=== PATIENT | male | born 1970 | race Caucasian/White ===

== ENCOUNTER 2017-01-09 13:00 | Inpatient (IN) | payer SELFPAY ==
[~2017-01-09] VITALS: Ht 175.3 cm; Wt 86.5 kg
[2017-01-09] VITALS (11 sets, daily range): BP systolic 95–109; BP diastolic 55–74; PULSE 98–114; RESP 16–20; TEMP 98.1–99.3; O2SAT 95–100
[~2017-01-09 13:00] MED LIST: DIPH25TA2 PO; FURO40TA PO; MULT-6 PO; PANT40TA3 PO; PROP10TA6 PO; SPIR25TA PO
--- NOTE | 2017-01-09 13:08 | PD ---
Physical Exam Time Seen by Provider: 13:05 Narrative 46-year-old male presents to emergency department with complaint of "extreme abdominal pain due to internal bleeding." Reports hematemesis and hematochezia. Reports headache, bilateral lower leg pain, back back pain. Unknown fevers. Patient seen in triage. Vital signs reviewed. Patient awaiting medical bed. Data Data Last Documented VS Vital Signs Date Time Temp Pulse Resp B/P (MAP) Pulse Ox O2 Delivery O2 Flow Rate FiO2 01/09/17 13:02 98.1 108 18 102/72 (82) 98 Room Air Orders Orders Complete Blood Count With Diff (01/09/17 13:08) Comprehensive Metabolic Panel (01/09/17 13:08) Lipase (01/09/17 13:08) Prothrombin Time / Inr (Pt) (01/09/17 13:08) Act Partial Throm Time (Ptt) (01/09/17 13:08) Urinalysis - C+S If Indicated (01/09/17 13:08) Iv Access Insert/Monitor (01/09/17 13:08) Ecg Monitoring (01/09/17 13:08) Oximetry (01/09/17 13:08) Sodium Chloride 0.9% Flush (Ns Flush) (01/09/17 13:15) MDM Supervised Visit with ANNITA: Fatuma Wilkerson Jan 09, 2017 13:08
[2017-01-09] MEDS ORDERED: SODIUM CHLORIDE 0.9% FLUSH 10 ML FLUSH IV FLUSH PRN ×2 (13:15→16:00)
[2017-01-09] MEDS ORDERED: ONDANSETRON HCL 4 MG/2 ML VIAL IV PUSH ONE (13:30)
[2017-01-09] MEDS ORDERED: MORPHINE SULFATE 8 MG/ML INJ IV PUSH ONE (13:30)
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
[2017-01-09] MEDS ORDERED: ALPR0.5T3 PO (13:45)
[2017-01-09 14:35] LABS: AUTOMATED NEUTROPHIL # 4.6 TH/MM3 (1.8-7.7); BASOPHIL % 0.3 % (0.0-2.0); EOSINOPHIL % 0.3 % (0.0-4.0); HEMATOCRIT 37.7 % (39.0-51.0); HEMO FLAGS DIFF FINAL; LYMPH % 29.5 % (9.0-44.0); LYMPHOCYTE # 2.2 TH/MM3 (1.0-4.8); MEAN CELL VOLUME 100.2 FL (80.0-100.0); MEAN CORPUSCULAR HEMOGLOBIN 34.5 PG (27.0-34.0); MEAN CORPUSCULAR HGB CONC 34.5 % (32.0-36.0); NEUT % 62.9 % (16.0-70.0); PLATELET COUNT 118 TH/MM3 (150-450); RED BLOOD COUNT 3.77 MIL/MM3 (4.50-5.90); RED CELL DISTRIBUTION WIDTH 15.1 % (11.6-17.2); WHITE BLOOD COUNT 7.4 TH/MM3 (4.0-11.0)
[2017-01-09 14:48] LABS: APTT (PATIENT) 30.5 SEC (24.3-30.1); INTERNATIONAL NORMALIZED RATIO 1.2 RATIO; PROTHROMBIN TIME - PATIENT 12.8 SEC (9.8-11.6)
[2017-01-09 15:17] LABS: ALKALINE PHOSPHATASE 181 U/L (45-117); ALT (GPT) 22 U/L (12-78); ANION GAP 19 MEQ/L (5-15); AST (GOT) 34 U/L (15-37); BICARBONATE 25.5 MEQ/L (21.0-32.0); BLOOD UREA NITROGEN 12 MG/DL (7-18); CHLORIDE 79 MEQ/L (98-107); GLOMERULAR FILTRATION RATE 63 ML/MIN (>89); TOTAL BILIRUBIN ADULT 0.6 MG/DL (0.2-1.0)
[2017-01-09 15:19] LABS: SODIUM (NA) 123 MEQ/L (136-145)
[2017-01-09 15:20] LABS: POTASSIUM 2.7 MEQ/L (3.5-5.1)
[2017-01-09] MEDS ORDERED: SENNOSIDES 8.6 MG TAB PO PRN (16:00)
[2017-01-09] MEDS ORDERED: MAGNESIUM HYDROXIDE SUSP 30 ML CUP PO PRN (16:00)
[2017-01-09] MEDS ORDERED: DEXTROSE 50% IN WATER 50 ML VIAL(D50) IV PUSH PRN (16:00)
[2017-01-09] MEDS ORDERED: PANTOPRAZOLE SODIUM 40 MG VIAL IV PUSH ONE (16:00)
[2017-01-09] MEDS ORDERED: ONDANSETRON HCL 4 MG/2 ML VIAL IVP PRN (16:00)
[2017-01-09] MEDS ORDERED: LACTULOSE SYRUP 20 GM/30 ML CUP PO PRN (16:00)
[2017-01-09] MEDS ORDERED: GLUCAGON 1 MG/ML VIAL OTHER PRN (16:00)
[2017-01-09] MEDS ORDERED: BISACODYL 10 MG SUPP RECTAL PRN (16:00)
[2017-01-09] MEDS ORDERED: NALOXONE HCL 0.4 MG/ML AMP IV PUSH PRN (16:00)
[2017-01-09] MEDS ORDERED: ACETAMINOPHEN 325 MG TAB PO PRN (16:00)
[2017-01-09] MEDS ORDERED: diphenhydrAMINE HCL 25 MG CAP PO PRN (16:00)
[2017-01-09] MEDS: NS + KCL 40 MEQ INJ 1,000 ML IV SCH (16:04)
--- NOTE | 2017-01-09 16:27 | RADRPT ---
EXAM DATE/TIME: 01/09/2017 16:03 [facility] COMPARISON: US ABDOMEN - LOWER LIMITED, April 22, 2015, 10:36. INDICATIONS : Abdominal distention. MEDICAL HISTORY : Hypercholesterolemia. Hypertension. Liver disease. Anxiety. MRSA. SURGICAL HISTORY : Surgery, unspecified. ENCOUNTER: Subsequent ACUITY: 4-6 days PAIN SCORE: 6/10 LOCATION: Abdomen. AREA EVALUATED: Abdomen. FINDINGS: Imaging of the abdomen and pelvis was performed to evaluate for ascites for possible paracentesis. No ascitic fluid observed. Note is made of a distended urinary bladder. This contains approximately 650 mL. Visceral evaluation of the abdomen was not performed today. CONCLUSION: 1. No significant ascitic fluid. 2. Distended urinary bladder. Kam Zhu Jr., MD on January 09, 2017 at 16:21 Board Certified Radiologist. This report was verified electronically.
[2017-01-09] MEDS: INSULIN ASPART SUPPLEMENTAL SCALE SQ SCH ×2 (17:00→20:40)
[2017-01-09 17:36] LABS: BLOOD, URINE NEG (NEG); COMMENT (UR) CULT NOT INDICATED; CULTURE IF INDICATED CULT NOT INDICATED; GLUCOSE,URINE 1000 mg/dL (NEG); KETONE, URINE NEG (NEG); MUCUS URINE FEW /lpf (OCC); NITRITE,URINE NEG (NEG); PH, URINE 5.5 (5.0-8.5); URINE COLOR YELLOW (YELLW/STRAW)
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
[2017-01-09] MEDS: PROPRANOLOL HCL 10 MG TAB PO SCH ×2 (20:30→21:00)
[2017-01-09] MEDS: SODIUM CHLORIDE 0.9% FLUSH 10 ML FLUSH IV FLUSH SCH (20:30)
[2017-01-09] MEDS: DOCUSATE SODIUM 50 MG/SENNA 8.6 MG TAB PO SCH (20:30)
[2017-01-09] MEDS: ALPRAZolam 0.5 MG TAB PO PRN (20:30)
[2017-01-09] MEDS: SPIRONOLACTONE 25 MG TAB PO SCH ×2 (20:30→21:00)
[2017-01-09] MEDS: ENOXAPARIN SODIUM 40 MG/0.4 ML SYRINGE SQ SCH (20:31)
[2017-01-09] MEDS ORDERED: oxyCODONE/ACETAMINOPHEN 5 MG/325 MG TAB PO ONE (22:45)
[2017-01-10] VITALS (10 sets, daily range): BP systolic 93–108; BP diastolic 58–77; PULSE 84–109; RESP 16–20; TEMP 97.8–98.4; O2SAT 93–98
[2017-01-10] MEDS: NS + KCL 40 MEQ INJ 1,000 ML IV SCH ×2 (04:27→15:34)
[2017-01-10] MEDS: ALPRAZolam 0.5 MG TAB PO PRN ×3 (04:30→21:00)
[2017-01-10] MEDS ORDERED: oxyCODONE/ACETAMINOPHEN 5 MG/325 MG TAB PO ONE (04:45)
[2017-01-10 08:09] LABS: AUTOMATED NEUTROPHIL # 2.9 TH/MM3 (1.8-7.7); BASOPHIL % 0.7 % (0.0-2.0); EOSINOPHIL % 0.3 % (0.0-4.0); HEMATOCRIT 33.6 % (39.0-51.0); LYMPH % 26.7 % (9.0-44.0); LYMPHOCYTE # 1.2 TH/MM3 (1.0-4.8); MEAN CELL VOLUME 100.5 FL (80.0-100.0); MEAN CORPUSCULAR HEMOGLOBIN 34.9 PG (27.0-34.0); MEAN CORPUSCULAR HGB CONC 34.7 % (32.0-36.0); MONO % 9.1 % (0.0-8.0); NEUT % 63.2 % (16.0-70.0); PLATELET COUNT 79 TH/MM3 (150-450); RED BLOOD COUNT 3.35 MIL/MM3 (4.50-5.90); WHITE BLOOD COUNT 4.5 TH/MM3 (4.0-11.0)
[2017-01-10 08:14] LABS: HEMO FLAGS AUTO DIFF
[2017-01-10] MEDS: PROPRANOLOL HCL 10 MG TAB PO SCH ×2 (08:53→20:50)
[2017-01-10] MEDS: PANTOPRAZOLE SOD 40 MG DELAYED RELEASE TAB PO SCH (08:53)
[2017-01-10] MEDS: INSULIN ASPART SUPPLEMENTAL SCALE SQ SCH ×4 (08:53→21:00)
[2017-01-10] MEDS: DOCUSATE SODIUM 50 MG/SENNA 8.6 MG TAB PO SCH ×2 (08:53→21:00)
[2017-01-10] MEDS: THIAMINE HCL 100 MG TAB PO SCH (08:53)
[2017-01-10] MEDS: FOLIC ACID 1 MG TAB PO SCH (08:54)
[2017-01-10] MEDS: SPIRONOLACTONE 25 MG TAB PO SCH ×2 (08:54→20:50)
[2017-01-10] MEDS: SODIUM CHLORIDE 0.9% FLUSH 10 ML FLUSH IV FLUSH SCH ×2 (08:55→20:50)
[2017-01-10 09:07] LABS: SCAN/DIFF AUTO DIFF CONFIRMED
[2017-01-10 09:09] LABS: PLATELET ESTIMATE SMEAR LOW (NORMAL); PLATELET MORPHOLOGY NORMAL (NORMAL)
--- NOTE | 2017-01-10 09:25 | HHI.PR ---
Subjective Remarks In bed, feels some imprpovem,ent since yesterday. He has a walker at home. Wants to try to walk with PT. Still with numbness in his legs. No much abd cramps. No diarrhea, n/v/c. No fever or chills. Able to keep down some food however did not eat much (jello only) Objective Vitals Vital Signs Date Time Temp Pulse Resp B/P (MAP) Pulse Ox O2 Delivery O2 Flow Rate FiO2 01/10/17 09:02 Room Air 01/10/17 04:00 Room Air 01/10/17 04:00 97.9 86 18 101/77 (85) 98 01/10/17 00:00 Room Air 01/10/17 00:00 98.4 109 16 101/68 (79) 95 01/09/17 22:08 114 95/62 (73) 01/09/17 21:30 95 21 01/09/17 20:00 Room Air 01/09/17 20:00 98.8 107 16 95/55 (68) 95 01/09/17 19:58 108 01/09/17 18:52 108 01/09/17 18:15 99.3 109 20 101/58 (72) 98 01/09/17 17:57 01/09/17 17:00 100 19 109/68 (82) 97 Room Air 01/09/17 16:00 98 19 104/74 (84) 100 Room Air 01/09/17 14:00 98 17 107/73 (84) Room Air 01/09/17 13:14 97 Room Air 01/09/17 13:14 17 01/09/17 13:02 98.1 108 18 102/72 (82) 98 Room Air I/O 01/09/17 01/09/17 01/09/17 01/10/17 01/10/17 01/10/17 07:00 15:00 23:00 07:00 15:00 23:00 Intake Total 1348 ml Output Total 600 ml Balance 748 ml Intake Oral 240 ml IV Total 1108 ml Output Urine Total 600 ml # Bowel Movements 0 Result Diagram: 01/10/17 0729 01/09/17 1330 Imaging Last Impressions Abdomen Ultrasound 01/09/17 0000 Signed Impressions: Service Date/Time: December 16:03 - CONCLUSION: 1. No significant ascitic fluid. 2. Distended urinary bladder. Kam Zhu Jr., MD Objective Remarks GENERAL: This is a well-nourished, well-developed patient, in no apparent distress. Awake and alert. A and O 3. CARDIOVASCULAR: Regular rate and rhythm without murmurs, gallops, or rubs. RESPIRATORY: Clear to auscultation. Breath sounds equal bilaterally. No wheezes , rales, or rhonchi. GASTROINTESTINAL: Abdomen soft. Distended. Mild tenderness noted diffusely. No hepato-splenomegaly, or palpable masses but difficult to assess secondary distention. No guarding. MUSCULOSKELETAL: Extremities without clubbing, cyanosis. (+) Bilateral lower extremity pitting edema. No joint tenderness, effusion, or edema noted. No calf tenderness. NEUROLOGICAL: Awake and alert. Able to move all extremities. Strength grossly intact bilateral upper and lower extremities. Decreased sensation bilateral lower extremities. Normal speech. A/P Assessment and Plan 46-year-old male with a past medical history significant for liver cirrhosis who presents to [facility] with complaints of bilateral lower extremity pain , numbness and loss of balance found to have a low sodium and potassium as well as a distended urinary bladder by abdominal ultrasound. Symptomatic hyponatremia Na of 123 on admission. Trending up cont IVF . Monitor closely for overcorrection. Hypokalemia. Monitor and replace as need. - Patient with complaints of loss of balance, muscle cramping and decreased sensation in BLEs. Sensorium appears clear at present. - Hold home Lasix - Continuous cardiac monitoring - Patient started on normal saline with potassium replacement in the ED. Continue with gentle IV fluid administration. Monitor for any evidence of fluid overload. - Repeat BMP in a.m. - PT eval/tx Liver cirrhosis with ongoing alcohol consumption - Reportedly, patient only a social drinker. Hepatitis workup negative 2015. - AST and ALT within normal limits. Alkaline phosphatase slightly elevated. - No evidence of ascites on ultrasound - Hold Lasix secondary to electrolyte abnormalities - Continue home dose of spironolactone 50 mg twice a day, propanolol 10 mg q 12h - Protonix 40 mg daily - Discussed alcohol abstinence - Folic acid and thiamine daily - Strict I&Os Urinary retention - Abdominal ultrasound personally reviewed showing a distended urinary bladder - Insert Jha catheter - Follow up on UA results Abdominal pain - Suspect due to combination of urinary retention and symptomatic hyponatremia causing cramping - As stated above, Jha for urinary retention and electrolyte repletion Hyperglycemia - Accu-Chek - Insulin sliding scale - Obtain hemoglobin A1c, previous a1c was normal in 2016, however BS in 350s on admission Thrombocytopenia - platelets 118. Monitor levels. Monitor for signs of bleeding. - Suspect secondary to liver disease - Monitor Tobaccoism - Discussed smoking cessation Anxiety - Continue home dose of Xanax 0.5 mg by mouth every 8 when necessary GI prophylaxis - Patient on Protonix DVT prophylaxis - Lovenox subcutaneous Discussed with the patient, nurse Nelli Cox MD Jan 10, 2017 09:25
[2017-01-10 09:53] LABS: BICARBONATE 30.9 MEQ/L (21.0-32.0); POTASSIUM 3.1 MEQ/L (3.5-5.1)
[2017-01-10] MEDS ORDERED: POTASSIUM CHLORIDE 10 MEQ CONTROLLED RELEASE TAB PO ONE (11:15)
[2017-01-10] MEDS: oxyCODONE/ACETAMINOPHEN 5 MG/325 MG TAB PO PRN ×3 (11:39→23:54)
[2017-01-10 16:30] LABS: HEMOGLOBIN A1a 1.1 %; HEMOGLOBIN A1b 2.6 %; HEMOGLOBIN Ao 76.3 %; HEMOGLOBIN LA1C 2.9 %; HEMOGLOBIN P3 4.8 %
[2017-01-10] MEDS: ENOXAPARIN SODIUM 40 MG/0.4 ML SYRINGE SQ SCH (21:01)
[2017-01-11 04:07] VITALS: BP 96/71; PULSE 84; RESP 16; TEMP 97.6; O2SAT 92
[2017-01-11] MEDS: oxyCODONE/ACETAMINOPHEN 5 MG/325 MG TAB PO PRN ×3 (05:47→17:40)
[2017-01-11] MEDS: NS + KCL 40 MEQ INJ 1,000 ML IV SCH ×2 (05:49→21:34)
[2017-01-11] MEDS: ALPRAZolam 0.5 MG TAB PO PRN ×3 (05:50→21:35)
[2017-01-11 08:00] VITALS: BP 102/72; PULSE 93; RESP 20; TEMP 97.8; O2SAT 95
[2017-01-11] MEDS: INSULIN ASPART SUPPLEMENTAL SCALE SQ SCH ×4 (08:00→21:39)
[2017-01-11 08:20] LABS: AUTOMATED NEUTROPHIL # 2.7 TH/MM3 (1.8-7.7); BASOPHIL % 0.4 % (0.0-2.0); EOSINOPHIL % 0.5 % (0.0-4.0); HEMATOCRIT 33.9 % (39.0-51.0); LYMPH % 25.1 % (9.0-44.0); MEAN CELL VOLUME 102.8 FL (80.0-100.0); MEAN CORPUSCULAR HEMOGLOBIN 34.1 PG (27.0-34.0); MEAN CORPUSCULAR HGB CONC 33.2 % (32.0-36.0); MONO % 8.9 % (0.0-8.0); NEUT % 65.1 % (16.0-70.0); PLATELET COUNT 74 TH/MM3 (150-450); RED CELL DISTRIBUTION WIDTH 14.7 % (11.6-17.2); WHITE BLOOD COUNT 4.1 TH/MM3 (4.0-11.0)
[2017-01-11 08:25] LABS: HEMO FLAGS AUTO DIFF
[2017-01-11 08:58] LABS: POTASSIUM 3.9 MEQ/L (3.5-5.1)
[2017-01-11] MEDS: INSULIN DETEMIR 100 UNITS/ML VIAL SQ SCH ×2 (09:00→21:35)
[2017-01-11] MEDS: DOCUSATE SODIUM 50 MG/SENNA 8.6 MG TAB PO SCH ×2 (09:00→21:00)
[2017-01-11 09:15] LABS: PLATELET ESTIMATE SMEAR LOW (NORMAL)
[2017-01-11 09:16] LABS: PLATELET MORPHOLOGY NORMAL (NORMAL); SCAN/DIFF AUTO DIFF CONFIRMED
[2017-01-11] MEDS: PANTOPRAZOLE SOD 40 MG DELAYED RELEASE TAB PO SCH (09:52)
[2017-01-11] MEDS: FOLIC ACID 1 MG TAB PO SCH (09:52)
[2017-01-11] MEDS: SPIRONOLACTONE 25 MG TAB PO SCH ×2 (09:52→21:32)
[2017-01-11] MEDS: THIAMINE HCL 100 MG TAB PO SCH (09:52)
[2017-01-11] MEDS: PROPRANOLOL HCL 10 MG TAB PO SCH ×2 (09:53→21:32)
[2017-01-11] MEDS: SODIUM CHLORIDE 0.9% FLUSH 10 ML FLUSH IV FLUSH SCH ×2 (09:55→21:00)
[2017-01-11 12:00] VITALS: BP 110/73; PULSE 103; RESP 20; TEMP 98; O2SAT 96
--- NOTE | 2017-01-11 14:09 | HHI.PR ---
Subjective Remarks In bed, says she can't walk. Still with parestesia in his legs, and also she has shouting pain, describes as firing/ eclectic pain in his legs lasting for seconds. Says he was supposed to be on gabapentin No fever or chills. No n/v/d/c. Objective Vitals Vital Signs Date Time Temp Pulse Resp B/P (MAP) Pulse Ox O2 Delivery O2 Flow Rate FiO2 01/11/17 12:00 98.0 103 20 110/73 (85) 96 01/11/17 09:00 98 Room Air 01/11/17 08:00 97.8 93 20 102/72 (82) 95 01/11/17 04:07 97.6 84 16 96/71 (79) 92 01/10/17 23:34 98.2 89 18 99/67 (78) 95 01/10/17 20:49 98.4 90 18 98/58 (71) 96 01/10/17 20:21 93 01/10/17 19:42 Room Air 01/10/17 17:34 88 100/73 (82) 01/10/17 16:00 97.8 84 20 96/64 (75) 93 I/O 01/10/17 01/10/17 01/10/17 01/11/17 01/11/17 01/11/17 06:59 14:59 22:59 06:59 14:59 22:59 Intake Total 1348 ml 892 ml 1240 ml Output Total 600 ml 250 ml Balance 748 ml 892 ml 990 ml Intake Oral 240 ml 240 ml IV Total 1108 ml 892 ml 1000 ml Output Urine Total 600 ml 250 ml # Bowel Movements 0 0 Result Diagram: 01/11/17 0754 01/11/17 0754 Imaging Last Impressions Abdomen Ultrasound 01/09/17 0000 Signed Impressions: Service Date/Time: December 16:03 - CONCLUSION: 1. No significant ascitic fluid. 2. Distended urinary bladder. Kam Zhu Jr., MD Objective Remarks GENERAL: This is a well-nourished, well-developed patient, in no apparent distress. Awake and alert. A and O 3. CARDIOVASCULAR: Regular rate and rhythm without murmurs, gallops, or rubs. RESPIRATORY: Clear to auscultation. Breath sounds equal bilaterally. No wheezes , rales, or rhonchi. GASTROINTESTINAL: Abdomen soft. Distended. Mild tenderness noted diffusely. No hepato-splenomegaly, or palpable masses but difficult to assess secondary distention. No guarding. MUSCULOSKELETAL: Extremities without clubbing, cyanosis. (+) Bilateral lower extremity pitting edema. No joint tenderness, effusion, or edema noted. No calf tenderness. NEUROLOGICAL: Awake and alert. Able to move all extremities. Strength grossly intact bilateral upper and lower extremities. Decreased sensation bilateral lower extremities. Normal speech. A/P Assessment and Plan 46-year-old male with a past medical history significant for liver cirrhosis who presents to [facility] with complaints of bilateral lower extremity pain , numbness and loss of balance found to have a low sodium and potassium as well as a distended urinary bladder by abdominal ultrasound. Symptomatic hyponatremia Na of 123 on admission. Trending up cont IVF . Monitor closely for overcorrection. Hypokalemia. Monitor and replace as need. - Patient with complaints of loss of balance, muscle cramping and decreased sensation in BLEs. Sensorium appears clear at present. - Hold home Lasix - Continuous cardiac monitoring - Patient started on normal saline with potassium replacement in the ED. Continue with gentle IV fluid administration. Monitor for any evidence of fluid overload. - Repeat BMP in a.m. - PT eval/tx Liver cirrhosis with ongoing alcohol consumption - Reportedly, patient only a social drinker. Hepatitis workup negative 2015. - AST and ALT within normal limits. Alkaline phosphatase slightly elevated. - No evidence of ascites on ultrasound - Hold Lasix secondary to electrolyte abnormalities - Continue home dose of spironolactone 50 mg twice a day, propanolol 10 mg q 12h - Protonix 40 mg daily - Discussed alcohol abstinence - Folic acid and thiamine daily - Strict I&Os Urinary retention - Abdominal ultrasound personally reviewed showing a distended urinary bladder - Insert Jha catheter - Follow up on UA results Abdominal pain - Suspect due to combination of urinary retention and symptomatic hyponatremia causing cramping - As stated above, Jha for urinary retention and electrolyte repletion Uncontrolled DM start Onsulin detemir. low IsS. Accu checks. - Accu-Chek - Insulin sliding scale - Obtain hemoglobin A1c, previous a1c was normal in 2016, however BS in 350s on admission A1c of 11 Thrombocytopenia - platelets 118. Monitor levels. Monitor for signs of bleeding. - Suspect secondary to liver disease - Monitor Tobaccoism - Discussed smoking cessation Anxiety - Continue home dose of Xanax 0.5 mg by mouth every 8 when necessary GI prophylaxis - Patient on Protonix DVT prophylaxis - Lovenox subcutaneous Discussed with the patient, nurse Nelli Cox MD Jan 11, 2017 14:09
[2017-01-11] MEDS ORDERED: CALCIUM GLUCONATE INJ 2 GM in DEXTROSE 5% IN WATER 100ML INJ 100 ML IV ONE ×2 (15:00)
[2017-01-11 16:00] VITALS: BP 93/55; PULSE 92; RESP 20; TEMP 98.1; O2SAT 93
[2017-01-11] MEDS: GABAPENTIN 100 MG CAP PO SCH (16:28)
[2017-01-11 20:00] VITALS: BP 108/72; PULSE 93; PULSE 95; RESP 18; TEMP 97.7; O2SAT 98
[2017-01-11 20:57] VITALS: O2SAT 98
[2017-01-11] MEDS: CALCIUM CARBONATE 500 MG CHEWABLE TAB CHEW SCH (21:32)
[2017-01-11] MEDS: ENOXAPARIN SODIUM 40 MG/0.4 ML SYRINGE SQ SCH (21:33)
[2017-01-12] VITALS: BP 128/77; PULSE 90; RESP 16; TEMP 97.8; O2SAT 95
[2017-01-12] MEDS: oxyCODONE/ACETAMINOPHEN 5 MG/325 MG TAB PO PRN ×2 (00:46→07:39)
[2017-01-12] MEDS: NS + KCL 40 MEQ INJ 1,000 ML IV SCH (03:05)
[2017-01-12 04:00] VITALS: BP 111/68; PULSE 89; RESP 20; TEMP 97.9; O2SAT 94
[2017-01-12] MEDS: ALPRAZolam 0.5 MG TAB PO PRN ×2 (05:36→13:33)
[2017-01-12] MEDS: PANTOPRAZOLE SOD 40 MG DELAYED RELEASE TAB PO SCH (07:37)
[2017-01-12] MEDS: CALCIUM CARBONATE 500 MG CHEWABLE TAB CHEW SCH (07:37)
[2017-01-12] MEDS: SPIRONOLACTONE 25 MG TAB PO SCH (07:37)
[2017-01-12] MEDS: GABAPENTIN 100 MG CAP PO SCH ×2 (07:37→11:42)
[2017-01-12] MEDS: PROPRANOLOL HCL 10 MG TAB PO SCH (07:38)
[2017-01-12] MEDS: THIAMINE HCL 100 MG TAB PO SCH (07:38)
[2017-01-12] MEDS: FOLIC ACID 1 MG TAB PO SCH (07:38)
[2017-01-12] MEDS: INSULIN DETEMIR 100 UNITS/ML VIAL SQ SCH (07:41)
[2017-01-12] MEDS: DOCUSATE SODIUM 50 MG/SENNA 8.6 MG TAB PO SCH (07:41)
[2017-01-12] MEDS: SODIUM CHLORIDE 0.9% FLUSH 10 ML FLUSH IV FLUSH SCH (07:52)
[2017-01-12] MEDS: INSULIN ASPART SUPPLEMENTAL SCALE SQ SCH ×2 (07:52→12:00)
[2017-01-12 08:00] VITALS: BP 111/78; PULSE 97; RESP 20; TEMP 98.7; O2SAT 95
--- NOTE | 2017-01-12 09:37 | HHI.PR ---
Subjective Remarks Patient was not able to ambulate, however he feels much better after gabapentin started. and was able to ambulkate He did walk with a cane with PT. Patient feels much better. No fever or chills. No n/v/d/c. Says he has a cane and also has a walker at home. Says he had diabetes uncontrolled a long tome ago and was on insulin, knows how to self inject insulin. Had diabetic classes. [place] diabetic [place]. Patient feels comfortable to go home today. Objective Vitals Vital Signs Date Time Temp Pulse Resp B/P (MAP) Pulse Ox O2 Delivery O2 Flow Rate FiO2 01/12/17 08:00 98.7 97 20 111/78 (89) 95 01/12/17 04:00 97.9 89 20 111/68 (82) 94 01/12/17 00:00 97.8 90 16 128/77 (94) 95 01/11/17 21:30 Room Air 01/11/17 20:57 98 21 01/11/17 20:00 97.7 93 18 108/72 (84) 98 01/11/17 20:00 95 01/11/17 16:00 98.1 92 20 93/55 (68) 93 01/11/17 12:00 98.0 103 20 110/73 (85) 96 I/O 01/11/17 01/11/17 01/11/17 01/12/17 01/12/17 01/12/17 07:00 15:00 23:00 07:00 15:00 23:00 Intake Total 1240 ml 480 ml 540 ml Output Total 250 ml 550 ml 650 ml Balance 990 ml 480 ml -550 ml -110 ml Intake Oral 240 ml 480 ml 540 ml IV Total 1000 ml Output Urine Total 250 ml 550 ml 650 ml # Bowel Movements 0 0 Result Diagram: 01/11/17 0754 01/11/17 0754 Imaging Last Impressions Abdomen Ultrasound 01/09/17 0000 Signed Impressions: Service Date/Time: December 16:03 - CONCLUSION: 1. No significant ascitic fluid. 2. Distended urinary bladder. Kam Zhu Jr., MD Objective Remarks GENERAL: This is a well-nourished, well-developed patient, in no apparent distress. Awake and alert. A and O 3. CARDIOVASCULAR: Regular rate and rhythm without murmurs, gallops, or rubs. RESPIRATORY: Clear to auscultation. Breath sounds equal bilaterally. No wheezes , rales, or rhonchi. GASTROINTESTINAL: Abdomen soft. Distended. Mild tenderness noted diffusely. No hepato-splenomegaly, or palpable masses but difficult to assess secondary distention. No guarding. MUSCULOSKELETAL: Extremities without clubbing, cyanosis. (+) Bilateral lower extremity pitting edema. No joint tenderness, effusion, or edema noted. No calf tenderness. NEUROLOGICAL: Awake and alert. Able to move all extremities. Strength grossly intact bilateral upper and lower extremities. Decreased sensation bilateral lower extremities. Normal speech. A/P Assessment and Plan 46-year-old male with a past medical history significant for liver cirrhosis who presents to [facility] with complaints of bilateral lower extremity pain , numbness and loss of balance found to have a low sodium and potassium as well as a distended urinary bladder by abdominal ultrasound. Perea placed, voiding trial. started flomax, to f.u as OP with PcP. Received IVF NS, lasix on hold, Na improved, will decreased dose of lasix at DC, continue spironolactone. 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 patient wants insulin and diabetic kit at discharge. Start atorvastatin. Patient also with vit D deficiency with a level of 6.8, started ergocalciferol. Also B12 supplement, thiamine and folate supplement. patient was adviced to quit etoh use. Patient also with diabetic neuropathy, satrted gabapentin with significant improvement of his symptoms. he was able to walk with his cane with PT. Has a cane and also has a walker at home. Patient imprpved , he was discharge din stable condition to follow up as OP with PCP and consultants. Symptomatic hyponatremia Na of 123 on admission. Trending up cont IVF . Monitor closely for overcorrection. Hypokalemia. Monitor and replace as need. - Patient with complaints of loss of balance, muscle cramping and decreased sensation in BLEs. Sensorium appears clear at present. - Hold home Lasix - Continuous cardiac monitoring - Patient started on normal saline with potassium replacement in the ED. Continue with gentle IV fluid administration. Monitor for any evidence of fluid overload. - Repeat BMP in a.m. - PT eval/tx Liver cirrhosis with ongoing alcohol consumption - Reportedly, patient only a social drinker. Hepatitis workup negative 2015. - AST and ALT within normal limits. Alkaline phosphatase slightly elevated. - No evidence of ascites on ultrasound - Hold Lasix secondary to electrolyte abnormalities - Continue home dose of spironolactone 50 mg twice a day, propanolol 10 mg q 12h - Protonix 40 mg daily - Discussed alcohol abstinence - Folic acid and thiamine daily - Strict I&Os Urinary retention - Abdominal ultrasound personally reviewed showing a distended urinary bladder - Insert Perea catheter, voiding trial. if unable to urinate will have perea at DC to follow up as op with urology. Also started flomax. - Follow up on UA results Abdominal pain - Suspect due to combination of urinary retention and symptomatic hyponatremia causing cramping - As stated above, Perea for urinary retention and electrolyte repletion. Consult urology Uncontrolled DM 2, with A1c of 11.9 complicate with peripheral neuropaty. Increase insulin detemir to 7U BID. Low ISS. Accu checks. - Accu-Chek, monitor BS and adjust insulin as need - Insulin sliding scale - Obtain hemoglobin A1c, previous a1c was normal in 2016, however BS in 350s on admission A1c of 11.9 - Start gabapentin Inability to ambulate . Consult PT. - PT to work with patient daily until improves. Thrombocytopenia - platelets 118. Monitor levels. Monitor for signs of bleeding. - Suspect secondary to liver disease - Monitor Vit D deficiency vit D of 6. - Start ergocalciferol. Also Vit B12 low normal side, start B12 supplement Tobaccoism - Discussed smoking cessation Anxiety - Continue home dose of Xanax 0.5 mg by mouth every 8 when necessary GI prophylaxis - Patient on Protonix DVT prophylaxis - Lovenox subcutaneous Discussed with the patient, nurse DC plan: Patient improved, walking in the hallway with a cane with PT, patient has a walker at home and has the cane with him. Patient doesn't have insurance. Case management ff for DC plan. Dc home today to follow up as OP with PCP and consultants. Voiding trial. Started flomax also Nelli Cox MD Jan 12, 2017 09:37
[2017-01-12] MEDS ORDERED: CYANOCOBALAMIN 1000 MCG/ML VIAL IM ONE (09:45)
[2017-01-12] MEDS ORDERED: LANCETS1 MI1 (10:23)
[2017-01-12] MEDS ORDERED: FURO40TA PO (10:23)
[2017-01-12] MEDS ORDERED: GLUCKIT15 (10:23)
[2017-01-12] MEDS ORDERED: ERGO1CAP30 PO (10:23)
[2017-01-12] MEDS ORDERED: NOVOLOGP2 SQ (10:23)
[2017-01-12] MEDS ORDERED: ALPR0.5T3 PO (10:23)
[2017-01-12] MEDS ORDERED: SPIR25TA PO (10:23)
[2017-01-12] MEDS ORDERED: PROP10TA6 PO (10:23)
[2017-01-12] MEDS ORDERED: LEVEMIR SQ ×2 (10:23→10:34)
[2017-01-12] MEDS ORDERED: GLUCTES12 (10:23)
[2017-01-12] MEDS ORDERED: FOLI-31 PO (10:23)
[2017-01-12] MEDS ORDERED: INSU1MIS15 (10:23)
[2017-01-12] MEDS ORDERED: [UNRECOGNIZED DRUG - CODE] PO (10:23)
[2017-01-12] MEDS ORDERED: BIOM30MI (10:23)
[2017-01-12] MEDS ORDERED: GABA100C4 PO (10:25)
--- NOTE | 2017-01-12 10:26 | HHI.DS ---
Discharge Summary Admission Date Jan 09, 2017 at 15:53 Discharge Date: Jan 12, 2017 Admitting Diagnosis Hyponatremia, hypokalemia, worsening ascitis (1) Vitamin D deficiency ICD Code: E55.9 - Vitamin D deficiency, unspecified (2) Liver cirrhosis ICD Code: K74.60 - Unspecified cirrhosis of liver Status: Acute (3) Ascites ICD Code: R18.8 - Other ascites Status: Acute (4) Diabetes type 2, uncontrolled ICD Code: E11.65 - Diabetes type 2, uncontrolled Status: Acute (5) Fatty liver ICD Code: K76.0 - Fatty liver Status: Acute (6) Hypertension ICD Code: I10 - Hypertension Status: Acute (7) Elevated alkaline phosphatase level ICD Code: R74.8 - Elevated serum alkaline phosphatase level Status: Acute (8) Diabetic neuropathy associated with type 2 diabetes mellitus ICD Code: E11.40 - Type 2 diabetes mellitus with diabetic neuropathy, unspecified (9) Urinary retention ICD Code: R33.9 - Retention of urine, unspecified (10) ETOH abuse ICD Code: F10.10 - Alcohol abuse Status: Acute Procedures none Brief History - From Admission Written by Floresita Guardado, acting as scribe for Dr. Cox on 01/09/17 at 17: 51. This is a 46-year-old male with a past medical history significant for liver cirrhosis who presents to [facility] with complaints of bilateral lower extremity pain, numbness and loss of balance. Patient states this has been progressive for the past several weeks. Overall, patient is a poor historian and must be continually redirected in the conversation. He denies any sensation from the ankles down. He states he must hold onto the marie or objects in the room to try and walk around. He endorses generalized weakness. Additionally, he also complains of increased swelling in his abdomen. He admits that he is urinating less but denies any dysuria. Patient continues to drink alcohol stating he was told by his physician he was okay to drink a little. Patient will not give clear specifics on how much alcohol he drinks stating that he will have a glass or 2 of wine when he cooks pasta. Patient is also complaining of significant back pain. Patient reports a history of ascites and has undergone paracentesis approximately 3 times in the last one being a year ago. In the ED, patient was found to have a sodium level of 123 and potassium level of 2.7. Abdominal ultrasound reveals no significant ascitic fluid but shows a distended urinary bladder. CBC/BMP: 01/11/17 0754 01/11/17 0754 Significant Findings Laboratory Tests Test 01/09/17 13:30 01/09/17 17:20 01/10/17 07:29 01/10/17 08:52 Red Blood Count 3.77 MIL/MM3 (4.50-5.90) 3.35 MIL/MM3 (4.50-5.90) Hematocrit 37.7 % (39.0-51.0) 33.6 % (39.0-51.0) Mean Corpuscular Volume 100.2 FL (80.0-100.0) 100.5 FL (80.0-100.0) Mean Corpuscular Hemoglobin 34.5 PG (27.0-34.0) 34.9 PG (27.0-34.0) Platelet Count 118 TH/MM3 (150-450) 79 TH/MM3 (150-450) Prothrombin Time 12.8 SEC (9.8-11.6) Activated Partial Thromboplast Time 30.5 SEC (24.3-30.1) Random Glucose 352 MG/DL (74-106) 237 MG/DL (74-106) Total Protein 8.7 GM/DL (6.4-8.2) Calcium Level 8.4 MG/DL (8.5-10.1) 8.3 MG/DL (8.5-10.1) Alkaline Phosphatase 181 U/L (45-117) Sodium Level 123 MEQ/L (136-145) 129 MEQ/L (136-145) Potassium Level 2.7 MEQ/L (3.5-5.1) 3.1 MEQ/L (3.5-5.1) Chloride Level 79 MEQ/L (98-107) 89 MEQ/L (98-107) Anion Gap 19 MEQ/L (5-15) Estimat Glomerular Filtration Rate 63 ML/MIN (>89) 82 ML/MIN (>89) Urine Glucose (UA) 1000 mg/dL (NEG) Urine Mucus FEW /lpf (OCC) Hemoglobin 11.7 GM/DL (13.0-17.0) Monocytes (%) (Auto) 9.1 % (0.0-8.0) Platelet Estimate LOW (NORMAL) Hemoglobin A1c 11.8 % (4.3-6.0) Test 01/10/17 12:00 01/11/17 07:54 Red Blood Count 3.30 MIL/MM3 (4.50-5.90) Hemoglobin 11.2 GM/DL (13.0-17.0) Hematocrit 33.9 % (39.0-51.0) Mean Corpuscular Volume 102.8 FL (80.0-100.0) Mean Corpuscular Hemoglobin 34.1 PG (27.0-34.0) Platelet Count 74 TH/MM3 (150-450) Monocytes (%) (Auto) 8.9 % (0.0-8.0) Platelet Estimate LOW (NORMAL) Random Glucose 172 MG/DL (74-106) Calcium Level 7.6 MG/DL (8.5-10.1) Sodium Level 133 MEQ/L (136-145) 25-Hydroxy Vitamin D Total 6.8 ng/ML (30-100) Imaging Last Impressions Abdomen Ultrasound 01/09/17 0000 Signed Impressions: Service Date/Time: December 16:03 - CONCLUSION: 1. No significant ascitic fluid. 2. Distended urinary bladder. Kam Zhu Jr., MD PE at Discharge GENERAL: This is a well-nourished, well-developed patient, in no apparent distress. Awake and alert. A and O 3. CARDIOVASCULAR: Regular rate and rhythm without murmurs, gallops, or rubs. RESPIRATORY: Clear to auscultation. Breath sounds equal bilaterally. No wheezes , rales, or rhonchi. GASTROINTESTINAL: Abdomen soft. Distended. Mild tenderness noted diffusely. No hepato-splenomegaly, or palpable masses but difficult to assess secondary distention. No guarding. MUSCULOSKELETAL: Extremities without clubbing, cyanosis. (+) Bilateral lower extremity pitting edema. No joint tenderness, effusion, or edema noted. No calf tenderness. NEUROLOGICAL: Awake and alert. Able to move all extremities. Strength grossly intact bilateral upper and lower extremities. Decreased sensation bilateral lower extremities. Normal speech. Hospital Course 46-year-old male with a past medical history significant for liver cirrhosis who presents to [facility] with complaints of bilateral lower extremity pain , numbness and loss of balance found to have a low sodium and potassium as well as a distended urinary bladder by abdominal ultrasound. Perea placed, voiding trial. started flomax, to f.u as OP with PcP. Received IVF NS, lasix on hold, Na improved, will decreased dose of lasix at DC, continue spironolactone. Patient also with uncontrolled DM a1c of 11.9, patient had patient educator in the past he was on insulin previously and know how to self inject insulin. patient wants insulin and diabetic kit at discharge. Start atorvastatin. Patient also with vit D deficiency with a level of 6.8, started ergocalciferol. Also B12 supplement, thiamine and folate supplement. patient was adviced to quit etoh use. Patient also with diabetic neuropathy, satrted gabapentin with significant improvement of his symptoms. he was able to walk with his cane with PT. Has a cane and also has a walker at home. Patient imprpved , he was discharge din stable condition to follow up as OP with PCP and consultants. Symptomatic hyponatremia Na of 123 on admission. Trending up cont IVF . Monitor closely for overcorrection. Hypokalemia. Monitor and replace as need. - Patient with complaints of loss of balance, muscle cramping and decreased sensation in BLEs. Sensorium appears clear at present. - Hold home Lasix - Continuous cardiac monitoring - Patient started on normal saline with potassium replacement in the ED. Continue with gentle IV fluid administration. Monitor for any evidence of fluid overload. - Repeat BMP in a.m. - PT eval/tx Liver cirrhosis with ongoing alcohol consumption - Reportedly, patient only a social drinker. Hepatitis workup negative 2015. - AST and ALT within normal limits. Alkaline phosphatase slightly elevated. - No evidence of ascites on ultrasound - Hold Lasix secondary to electrolyte abnormalities - Continue home dose of spironolactone 50 mg twice a day, propanolol 10 mg q 12h - Protonix 40 mg daily - Discussed alcohol abstinence - Folic acid and thiamine daily - Strict I&Os Urinary retention - Abdominal ultrasound personally reviewed showing a distended urinary bladder - Insert Perea catheter, voiding trial. if unable to urinate will have perea at ME to follow up as op with urology. Also started flomax. - Follow up on UA results Abdominal pain - Suspect due to combination of urinary retention and symptomatic hyponatremia causing cramping - As stated above, Perea for urinary retention and electrolyte repletion. Consult urology Uncontrolled DM 2, with A1c of 11.9 complicate with peripheral neuropaty. Increase insulin detemir to 7U BID. Low ISS. Accu checks. - Accu-Chek, monitor BS and adjust insulin as need - Insulin sliding scale - Obtain hemoglobin A1c, previous a1c was normal in 2016, however BS in 350s on admission A1c of 11.9 - Start gabapentin Inability to ambulate . Consult PT. - PT to work with patient daily until improves. Thrombocytopenia - platelets 118. Monitor levels. Monitor for signs of bleeding. - Suspect secondary to liver disease - Monitor Vit D deficiency vit D of 6. - Start ergocalciferol. Also Vit B12 low normal side, start B12 supplement Tobaccoism - Discussed smoking cessation Anxiety - Continue home dose of Xanax 0.5 mg by mouth every 8 when necessary GI prophylaxis - Patient on Protonix DVT prophylaxis - Lovenox subcutaneous Discussed with the patient, nurse DC plan: Patient improved, walking in the hallway with a cane with PT, patient has a walker at home and has the cane with him. Patient doesn't have insurance. Case management ff for DC plan. Dc home today to follow up as OP with PCP and consultants. Voiding trial. Started flomax also Pt Condition on Discharge: Stable Discharge Disposition: Discharge Home Discharge Time: > 30 minutes Discharge Instructions DIET: Follow Instructions for: Heart Healthy Diet, Diabetic Diet Activities you can perform: Regular-No Restrictions Follow up Referrals: PCP Follow-up - 2-3 Days Urology - 1 Week New Medications: Atorvastatin (Atorvastatin) 20 Mg Tab 20 MG PO HS for Cholesterol Management, #30 TAB 0 Refills Blood Glucose Monitoring W/Device (Glucocom Blood Glucose Mo W/Device) 1 Kit Kit KIT .ROUTE DIRECTED for Blood Sugar Management, #1 Folic Acid-B12-B6 (Foltabs) 0.8-115-10 Mg Tab 1 TAB PO DAILY for Nutritional Supplement, #60 TAB 0 Refills Glucocom Test Strips (Glucocom Test Strips) 1 Paola Paola EA .ROUTE DIRECTED for Blood Sugar Management, #1 Insulin Aspart Inj (Novolog Inj) 1,000 Unit/10 Ml Vial 1-9 UNITS SQ ACHS for Blood Sugar Management, #10 ML 0 Refills Max dose at bedtime:( )units; sugars less than 70,(0)units; sugars 150-199,(1) unit; sugars 200-249,(3) units; sugars 250-299,(5) units; sugars 300-349,(7) units; sugars greater than 349,(9) units Insulin Detemir Inj (Levemir Inj) 1,000 unit/ 10 ML Vial 7 UNITS SQ BID for Blood Sugar Management, #120 VIAL 0 Refills Do not mix with any other Insulin. Insulin Syringe/U-100/31G X 5/16" 1 ml (Insulin Syringe/U-100/31G X 5/16" 1 ml) 31 Gauge X 5/16" Mis EA .ROUTE DIRECTED for Blood Sugar Management, #1 0 Refills Lancets (Lancets) 1 Mis Mis EA .ROUTE DIRECTED for Blood Sugar Management, #1 0 Refills Parenteral Therapy Supplies (Sharpsafety Sharps Contai) 1 Mis Mis EA .ROUTE DIRECTED, #1 0 Refills Thiamine HCl (B-1) 100 Mg Tablet 100 MG PO DAILY for vit supplem, #60 TAB Ergocalciferol (Ergocalciferol) 50,000 Unit Cap 71874 UNITS PO Q7D for vit D deficiency , #8 CAP Gabapentin (Gabapentin) 100 Mg Cap 100 MG PO TID for neuropathy, #240 CAP Changed Medications: Furosemide (Furosemide) 40 Mg Tab 20 MG PO BID for ascites, #60 TAB 5 Refills (Changed from: 40 MG) Continued Medications: Alprazolam (Alprazolam) 0.5 Mg Tab 0.5 MG PO Q8H PRN for ANXIETY, #15 TAB 0 Refills (This prescription has been renewed) Diphenhydramine (Diphenhydramine) 25 Mg Tab 25 MG PO Q6H PRN for ALLERGIES, TAB 0 Refills Pantoprazole (Pantoprazole) 40 Mg Tab 40 MG PO DAILY for Reflux, #30 TAB 5 Refills Propranolol (Propranolol) 10 Mg Tab 10 MG PO Q12HR for Blood Pressure Management, #60 TAB 5 Refills (This prescription has been renewed) Spironolactone (Spironolactone) 25 Mg Tab 50 MG PO BID for Blood Pressure Management, #120 TAB 5 Refills (This prescription has been renewed) Nelli Cox MD Jan 12, 2017 10:26
[2017-01-12] MEDS ORDERED: ATOR20TA15 PO (10:30)
[2017-01-12] MEDS ORDERED: TAMSULOSIN HCL 0.4 MG CAP PO ONE (10:30)
[2017-01-12] MEDS ORDERED: ERGOCALCIFEROL (VIT D2) 50,000 UNIT CAP PO SCH (11:00)
[2017-01-12 13:20] LABS: BICARBONATE 23.9 MEQ/L (21.0-32.0); POTASSIUM 4.7 MEQ/L (3.5-5.1)
[2017-01-12] MEDS ORDERED: INSULIN DETEMIR 100 UNITS/ML VIAL SQ SCH (21:00)
[2017-01-13] MEDS ORDERED: CYANOCOBALAMIN 100 MCG TAB PO SCH (09:00)
[2017-01-13] MEDS ORDERED: TAMSULOSIN HCL 0.4 MG CAP PO SCH (09:00)
== END 2017-01-12 14:50 | disposition home or self-care (01) | DRG 641 ==
LOC: NEPE 13:00 → NEDA 15:53 → N04B 18:05
PROVIDERS: ADMIT Hospitalist; ATTEND Hospitalist
PROC: 0T9B70Z Drainage of Bladder with Drainage Device, Via Natural or Artificial Opening (ICD-10-PCS; principal; 2017-01-09)
DX: E87.1 Hypo-osmolality and hyponatremia (principal); R33.9 Retention of urine, unspecified; E11.40 Type 2 diabetes mellitus with diabetic neuropathy, unspecified; D69.59 Other secondary thrombocytopenia; E11.65 Type 2 diabetes mellitus with hyperglycemia; K74.60 Unspecified cirrhosis of liver; K76.0 Fatty (change of) liver, not elsewhere classified; E78.00 Pure hypercholesterolemia, unspecified; I10 Essential (primary) hypertension; F17.200 Nicotine dependence, unspecified, uncomplicated; I87.8 Other specified disorders of veins; E87.6 Hypokalemia; E55.9 Vitamin D deficiency, unspecified; F10.10 Alcohol abuse, uncomplicated; M54.9 Dorsalgia, unspecified; F41.9 Anxiety disorder, unspecified; Z86.14 Personal history of Methicillin resistant Staphylococcus aureus infection
CPT/HCPCS: 76705; 76937; 80048; 80053; 81001; 82306; 82607; 82948; 83036; 83690; 85025; 85610; 85730; 87641; 96374; 96375; C9113; J0610; J1650; J1815; J2270; J2405; J3420; J3480

== ENCOUNTER 2017-01-15 22:06 | Emergency (ER) | payer SELFPAY ==
[~2017-01-15] VITALS: Ht 175.3 cm; Wt 91.0 kg
[~2017-01-15 22:06] MED LIST changes: +ALPR0.5T3 PO; +ATOR20TA15 PO; +BIOM30MI; +ERGO1CAP30 PO; +FOLI-31 PO; +GABA100C4 PO; +GLUCKIT15; +GLUCTES12; +INSU1MIS15; +LANCETS1 MI1; +LEVEMIR SQ; -MULT-6 PO; +NOVOLOGP2 SQ; +[UNRECOGNIZED DRUG - CODE] PO
[2017-01-15 22:22] VITALS: BP 113/73; PULSE 113; RESP 18; TEMP 98.8; O2SAT 100
[2017-01-15 23:14] LABS: AUTOMATED NEUTROPHIL # 2.6 TH/MM3 (1.8-7.7); BASOPHIL # 0.1 TH/MM3 (0-0.2); BASOPHIL % 1.1 % (0.0-2.0); EOSINOPHIL % 0.9 % (0.0-4.0); HEMATOCRIT 37.2 % (39.0-51.0); HEMO FLAGS DIFF FINAL; LYMPH % 35.2 % (9.0-44.0); LYMPHOCYTE # 1.7 TH/MM3 (1.0-4.8); MEAN CELL VOLUME 101.3 FL (80.0-100.0); MEAN CORPUSCULAR HEMOGLOBIN 34.8 PG (27.0-34.0); MEAN CORPUSCULAR HGB CONC 34.4 % (32.0-36.0); MONO % 9.7 % (0.0-8.0); NEUT % 53.1 % (16.0-70.0); PLATELET COUNT 155 TH/MM3 (150-450); RED BLOOD COUNT 3.67 MIL/MM3 (4.50-5.90); RED CELL DISTRIBUTION WIDTH 14.8 % (11.6-17.2)
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
[2017-01-15 23:41] LABS: ALKALINE PHOSPHATASE 226 U/L (45-117); ALT (GPT) 23 U/L (12-78); ANION GAP 14 MEQ/L (5-15); AST (GOT) 28 U/L (15-37); BICARBONATE 23.9 MEQ/L (21.0-32.0); BLOOD UREA NITROGEN 6 MG/DL (7-18); CHLORIDE 99 MEQ/L (98-107); GLOMERULAR FILTRATION RATE 102 ML/MIN (>89); POTASSIUM 3.1 MEQ/L (3.5-5.1); SODIUM (NA) 137 MEQ/L (136-145); TOTAL BILIRUBIN ADULT 0.4 MG/DL (0.2-1.0)
[2017-01-15 23:42] LABS: ALCOHOL 250 MG/DL (0-5)
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
[2017-01-16] MEDS ORDERED: POTASSIUM CHLORIDE 20 MEQ CONTROLLED RELEASE TAB PO ONE (00:45)
[2017-01-16] MEDS ORDERED: CALCIUM CARBONATE 500 MG CHEWABLE TAB CHEW ONE (00:45)
[2017-01-16] MEDS ORDERED: THIAMINE INJ 100 MG in SODIUM CHLORIDE 0.9% INJ 100 ML IV ONE (00:45)
[2017-01-16] MEDS ORDERED: MAGNESIUM SULFATE 1 GM PREMIX 100 ML IV ONE (02:00)
[2017-01-16 02:02] VITALS: BP 112/71; PULSE 115; RESP 18; O2SAT 96
[2017-01-16] MEDS ORDERED: MORPHINE SULFATE 2 MG/ML INJ IV PUSH ONE (02:30)
[2017-01-16] MEDS ORDERED: ONDANSETRON HCL 4 MG/2 ML VIAL IV PUSH ONE (02:30)
[2017-01-16 03:10] VITALS: RESP 14
[2017-01-16 06:20] VITALS: BP 145/64; TEMP 98.3
== END 2017-01-16 06:41 | disposition home or self-care (01) ==
LOC: NEPC 22:06 → NEPD 01-16 06:41
DX: S09.90XA Unspecified injury of head, initial encounter (principal); F10.229 Alcohol dependence with intoxication, unspecified; K70.31 Alcoholic cirrhosis of liver with ascites; E11.65 Type 2 diabetes mellitus with hyperglycemia; F17.210 Nicotine dependence, cigarettes, uncomplicated; Y90.8 Blood alcohol level of 240 mg/100 ml or more; W19.XXXA Unspecified fall, initial encounter; Z79.4 Long term (current) use of insulin
CPT/HCPCS: 70450; 72125; 80053; 80307; 83735; 85025; 96365; 96367; 96375; 99285; J2270; J2405; J3411; J3475

== ENCOUNTER 2017-03-27 17:49 | Emergency (ER) | payer SELFPAY ==
[~2017-03-27 17:49] MED LIST changes: -ERGO1CAP30 PO; +VITA500012 PO; +[UNRECOGNIZED DRUG - CODE] PO; -[UNRECOGNIZED DRUG - CODE] PO
[2017-03-27 17:55] VITALS: BP 119/80; PULSE 112; RESP 16; TEMP 98.2; O2SAT 98
[2017-03-27 18:33] LABS: AUTOMATED NEUTROPHIL # 6.4 TH/MM3 (1.8-7.7); BASOPHIL % 0.4 % (0.0-2.0); EOSINOPHIL % 0.3 % (0.0-4.0); HEMOGLOBIN 14.8 GM/DL (13.0-17.0); LYMPH % 18.9 % (9.0-44.0); LYMPHOCYTE # 1.7 TH/MM3 (1.0-4.8); MEAN CELL VOLUME 99.6 FL (80.0-100.0); MEAN PLATELET VOLUME 8.4 FL (7.0-11.0); MONOCYTE # 0.6 TH/MM3 (0-0.9); NEUT % 73.4 % (16.0-70.0); PLATELET COUNT 185 TH/MM3 (150-450); RED BLOOD COUNT 4.11 MIL/MM3 (4.50-5.90); RED CELL DISTRIBUTION WIDTH 13.7 % (11.6-17.2); WHITE BLOOD COUNT 8.7 TH/MM3 (4.0-11.0)
[2017-03-27 18:40] LABS: MEAN CORPUSCULAR HGB CONC 36.2 % (32.0-36.0)
[2017-03-27 18:44] LABS: ALT (GPT) 34 U/L (12-78)
[2017-03-27 18:47] LABS: ALKALINE PHOSPHATASE 209 U/L (45-117); TOTAL BILIRUBIN ADULT 0.8 MG/DL (0.2-1.0); TOTAL PROTEIN 9.3 GM/DL (6.4-8.2)
[2017-03-27 18:54] LABS: ALBUMIN 3.4 GM/DL (3.4-5.0); AST (GOT) 48 U/L (15-37); BICARBONATE 25.9 MEQ/L (21.0-32.0); BLOOD UREA NITROGEN 12 MG/DL (7-18); CALCIUM 9.3 MG/DL (8.5-10.1); CHLORIDE 96 MEQ/L (98-107); GLOMERULAR FILTRATION RATE 72 ML/MIN (>89); GLUCOSE,RANDOM 167 MG/DL (74-106); LIPASE 178 U/L (73-393); SODIUM (NA) 133 MEQ/L (136-145)
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
[2017-03-27] MEDS ORDERED: SODIUM CHLORIDE 0.9% FLUSH 10 ML FLUSH IV FLUSH PRN (19:30)
--- NOTE | 2017-03-27 20:13 | RADRPT ---
EXAM DATE/TIME: 03/27/2017 19:33 [facility] COMPARISON: No previous studies available for comparison. INDICATIONS : Diffuse abdominal pain and distention. ORAL CONTRAST: No oral contrast ingested. RADIATION DOSE: 10.80 CTDIvol (mGy) MEDICAL HISTORY : Hypertension. Cirrhosis. Ascites. SURGICAL HISTORY : Paracentesis. ENCOUNTER: Initial ACUITY: 1 week PAIN SCALE: 8/10 LOCATION: All quadrants. TECHNIQUE: Volumetric scanning of the abdomen and pelvis was performed. Using automated exposure control and ad justment of the mA and/or kV according to patient size, radiation dose was kept as low as reasonably achievable to obtain optimal diagnostic quality images. DICOM format image data is available electro nically for review and comparison. FINDINGS: LOWER LUNGS: Minimal atelectasis in the left lung base. LIVER: Cirrhotic appearance without evidence of biliary ductal dilatation or focal mass. Single dependent ca lcified gallstones. SPLEEN: Normal size without lesion. PANCREAS: Within normal limits. KIDNEYS: Normal in size and shape. There is no mass, stone, or hydronephrosis. ADRENAL GLANDS: Within normal limits. VASCULAR: There is no aortic aneurysm. BOWEL/MESENTERY: The stomach, small bowel, and colon demonstrate no acute abnormality. There is no free intraperitone al air or fluid. ABDOMINAL WALL: Within normal limits. RETROPERITONEUM: Mild hazy induration in the gastrohepatic ligament with tiny lymph nodes in the celiac region. No edith dence of para-aortic adenopathy. BLADDER: No wall thickening or mass. REPRODUCTIVE: Within normal limits. INGUINAL: There is no lymphadenopathy or hernia. MUSCULOSKELETAL: Within normal limits for patient age. CONCLUSION: Cirrhotic liver appearance. Gallstone. Nonspecific mild indurative change in donna prominence in the gastrohepatic ligament and celiac simon Ruby MD on March 27, 2017 at 20:07 Board Certified Radiologist. This report was verified electronically.
[2017-03-27 21:02] LABS: INTERNATIONAL NORMALIZED RATIO 1.1 RATIO; PROTHROMBIN TIME - PATIENT 11.5 SEC (9.8-11.6)
[2017-03-27 21:03] LABS: BILIRUBIN, URINE NEG (NEG); BLOOD, URINE NEG (NEG); GLUCOSE,URINE NEG (NEG); HYALINE CAST, URINE 14 /lpf (RARE); KETONE, URINE NEG (NEG); NITRITE,URINE NEG (NEG); URINE COLOR YELLOW (YELLW/STRAW); URINE LEUKOCYTE ESTERASE NEG (NEG)
[2017-03-27 21:29] VITALS: O2SAT 96
[2017-03-27] MEDS ORDERED: SPIR25TA PO (21:55)
[2017-03-27] MEDS ORDERED: PANT40TA3 PO (21:55)
[2017-03-27] MEDS ORDERED: FURO40TA PO (21:55)
[2017-03-27] MEDS ORDERED: GABA100C4 PO (21:55)
[2017-03-27] MEDS ORDERED: ATOR20TA15 PO (21:55)
[2017-03-27] MEDS ORDERED: PROP10TA6 PO (21:55)
[2017-03-27] MEDS ORDERED: GABAPENTIN 100 MG CAP PO ONE (22:00)
== END 2017-03-27 23:19 | disposition home or self-care (01) ==
LOC: NEPC 17:49
DX: R10.9 Unspecified abdominal pain (principal); E78.00 Pure hypercholesterolemia, unspecified; K21.9 Gastro-esophageal reflux disease without esophagitis; F17.200 Nicotine dependence, unspecified, uncomplicated; Z76.0 Encounter for issue of repeat prescription
CPT/HCPCS: 74176; 80053; 81001; 83690; 85025; 85610; 85730

== ENCOUNTER 2017-04-21 15:37 | Emergency (ER) | payer SELFPAY ==
[2017-04-21] MEDS: FUROSEMIDE 40 MG/4 ML VIAL IV PUSH (16:19)
[2017-04-21 16:26] LABS: CHLORIDE 101 MEQ/L (98-107); POTASSIUM 3.3 MEQ/L (3.5-5.1); SODIUM (NA) 135 MEQ/L (136-145)
[2017-04-21 16:29] LABS: CALCIUM 8.5 MG/DL (8.5-10.1)
[2017-04-21 16:30] LABS: ALBUMIN 3.1 GM/DL (3.4-5.0); ANION GAP 13 MEQ/L (5-15); BICARBONATE 20.7 MEQ/L (21.0-32.0); BLOOD UREA NITROGEN 4 MG/DL (7-18); GLUCOSE,RANDOM 133 MG/DL (74-106)
[2017-04-21 16:33] LABS: ALT (GPT) 29 U/L (12-78); AST (GOT) 29 U/L (15-37); AUTOMATED NEUTROPHIL # 4.9 TH/MM3 (1.8-7.7); BASOPHIL # 0.1 TH/MM3 (0-0.2); BASOPHIL % 2.2 % (0.0-2.0); CREATININE 0.84 MG/DL (0.60-1.30); EOSINOPHIL % 0.4 % (0.0-4.0); GLOMERULAR FILTRATION RATE 98 ML/MIN (>89); HEMATOCRIT 44.3 % (39.0-51.0); HEMO FLAGS DIFF FINAL; HEMOGLOBIN 14.5 GM/DL (13.0-17.0); LYMPH % 21.5 % (9.0-44.0); LYMPHOCYTE # 1.4 TH/MM3 (1.0-4.8); MEAN CORPUSCULAR HEMOGLOBIN 32.4 PG (27.0-34.0); MEAN CORPUSCULAR HGB CONC 32.7 % (32.0-36.0); MEAN PLATELET VOLUME 8.2 FL (7.0-11.0); MONO % 5.2 % (0.0-8.0); MONOCYTE # 0.3 TH/MM3 (0-0.9); NEUT % 70.7 % (16.0-70.0); PLATELET COUNT 136 TH/MM3 (150-450); RED BLOOD COUNT 4.48 MIL/MM3 (4.50-5.90); RED CELL DISTRIBUTION WIDTH 13.1 % (11.6-17.2); WHITE BLOOD COUNT 6.7 TH/MM3 (4.0-11.0)
[2017-04-21 16:34] LABS: TOTAL BILIRUBIN ADULT 0.4 MG/DL (0.2-1.0); TOTAL PROTEIN 7.9 GM/DL (6.4-8.2)
[2017-04-21 16:36] LABS: ALKALINE PHOSPHATASE 185 U/L (45-117)
[2017-04-21 16:48] LABS: ALCOHOL 219 MG/DL (0-5)
== END 2017-04-21 18:53 | disposition home or self-care (01) ==
LOC: PHED 18:53
DX: F10.129 Alcohol abuse with intoxication, unspecified (principal); G62.9 Polyneuropathy, unspecified; K70.31 Alcoholic cirrhosis of liver with ascites; I10 Essential (primary) hypertension; E78.00 Pure hypercholesterolemia, unspecified; F41.9 Anxiety disorder, unspecified; K21.9 Gastro-esophageal reflux disease without esophagitis; F17.210 Nicotine dependence, cigarettes, uncomplicated; Z91.14 Patient's other noncompliance with medication regimen; Z79.899 Other long term (current) drug therapy
CPT/HCPCS: 80053; 80307; 85025; 96374; 99284-25

== ENCOUNTER 2017-12-05 05:43 | Inpatient (IN) ==
--- NOTE | 2017-12-05 06:28 | ED ---
HPI General Chief complaint: Extremity Injury, Lower Stated complaint: Leg pain Time Seen by Provider: 12/05/17 06:18 History of Present Illness HPI narrative: Mr. Moran is a 47-year-old with a history of liver disease who presents to the ED with CC of sharp pain in his right abdomen shooting down to his legs that began within the past day. He also is experiencing headache, dizziness, nausea, vomiting. He reports these issues began three years ago and have gotten worse. He also report no urination for the past 30 hours. Related Data Home Medications Medication Instructions Recorded Confirmed alprazolam [Xanax] 1 mg PO BID PRN 12/05/17 12/05/17 furosemide 0.5 tab PO BID 12/05/17 12/05/17 pantoprazole [Protonix] 20 mg PO DAILY 12/05/17 12/05/17 propranolol 10 mg PO BID 12/05/17 12/05/17 spironolactone 2 tab PO BID 12/05/17 12/05/17 Previous Rx's Medication Instructions Recorded tamsulosin 0.4 mg PO DAILY #60 cap 12/10/17 Allergies Allergy/AdvReac Type Severity Reaction Status Date / Time ceftriaxone Allergy Mild rash Verified 12/05/17 07:22 metronidazole AdvReac Severe Rash Verified 12/05/17 07:22 Review of Systems ROS: all other systems reviewed are negative [facility] Social History Social History Substance History: No History of Abuse Second Hand Smoke Exposure: No Smoking Status: Current some day smoker Tobacco Type: Cigarettes and Cigars How Often Do You Have a Drink Containing Alcohol: 2 to 3 times a week Recent Travel in [facility] within the Last 8 Weeks: No Recent Out of Country Travel within the Last 8 Weeks: No Immunization History Tetanus Immunization: <5 Years Hx Influenza Vaccine This Season: Yes Exam Narrative Exam Narrative: GENERAL: Appears diaphoretic, vomiting and in mild distress. Alert and oriented x4. SKIN: Warm and dry. HEAD: Atraumatic. Normocephalic. EYES: Pupils equal and round. No scleral icterus. No injection or drainage. ENT: No nasal bleeding or discharge. Mucous membranes pink and moist. NECK: Trachea midline. No JVD. CARDIOVASCULAR: Regular rate and rhythm. RESPIRATORY: No accessory muscle use. Clear to auscultation. Breath sounds equal bilaterally. GASTROINTESTINAL: Abdomen soft, tenderness in the RLQ and RUQ, distended. Hepatic and splenic margins not palpable. MUSCULOSKELETAL: Extremities without clubbing, cyanosis. Edema of his lower extremities bilaterally. No obvious deformities. NEUROLOGICAL: Awake and alert. No obvious cranial nerve deficits. Motor grossly within normal limits. Five out of 5 muscle strength in the arms and legs. Normal speech. PSYCHIATRIC: Appropriate mood and affect; insight and judgment normal. Course Initial Documented Vital Signs Temperature 97.9 F 12/05/17 05:45 Pulse Rate 109 H 12/05/17 05:45 Respiratory Rate 16 12/05/17 05:45 Blood Pressure 116/79 12/05/17 05:45 Pulse Oximetry 98 12/05/17 05:45 Last Documented Vital Signs Temperature 97.5 F L 12/10/17 08:00 Pulse Rate 88 12/10/17 08:00 Respiratory Rate 18 12/10/17 08:00 Blood Pressure 125/76 12/10/17 08:00 Pulse Oximetry 96 12/10/17 08:00 Sign Out Sign Out Data: Patient Sign Out occurred on 12/05/17 at 07:42. Patient's care was discussed, and care was transferred from Tita Seals MD to Keith Silvestre MD. Sign Out Comment: Case is signed out to Dr. Silvestre at 7 AM, awaiting workup and CAT scan. Disposition based on findings. Last updated by Tita Seals MD at 12/05/17 07:07 Post-Handoff Eval: Patient CARE assume from Dr. Seals by me Dr. Silvestre at 07 100. This 47- year-old male presents emergency department for evaluation of abdominal pain and swelling all over. Abdomen is distended, moderately tender but I do not appreciate any peritoneal signs. Does have acute kidney injury, sodium decreased at 128. Patient without fever. Jha catheter was inserted and drained 500 cc of urine. Awaiting CT scan. Probable admission peer Medical Decision Making MDM Narrative Medical Screen Exam Complete: Yes Emergency Medical Condition: Yes Lab Data Result diagrams: 12/09/17 08:11 12/09/17 08:11 Lab Results 12/05/17 12/05/17 12/05/17 Range/Units 06:45 06:45 06:45 WBC 6.3 (4.0-11.0) th/mm3 RBC 4.47 L (4.50-5.90) mil/mm3 Hgb 15.3 (13.0-17.0) gm/dL Hct 42.3 (39.0-51.0) % MCV 94.6 (80.0-100.0) fL MCH 34.2 H (27.0-34.0) pg MCHC 36.2 H (32.0-36.0) % RDW 13.6 (11.6-17.2) % Plt Count 90 L (150-450) th/mm3 MPV 7.8 (7.0-11.0) fL Prelim Diff (Auto) Slide review pending Neut % (Auto) 73.1 H (16.0-70.0) % Lymph % (Auto) 17.6 (9.0-44.0) % [place] % (Auto) 8.8 H (0.0-8.0) % Eos % (Auto) 0.1 (0.0-4.0) % Baso % (Auto) 0.4 (0.0-2.0) % Neut # (Auto) 4.6 (1.8-7.7) th/mm3 Lymph # (Auto) 1.1 (1.0-4.8) th/mm3 [place] # (Auto) 0.6 (0.0-0.9) th/mm3 Eos # (Auto) 0.0 (0.0-0.4) th/mm3 Baso # (Auto) 0.0 (0.0-0.2) th/mm3 WBC Differential . Diff Scan Auto diff confirmed Differential Comment . Platelet Estimate Low L (Normal) Platelet Morphology Normal (Normal) PT 12.0 H (9.8-11.6) sec INR 1.2 Ratio APTT 25.8 (24.3-30.1) sec Sodium 128 L (136-145) meq/L Potassium 3.1 L (3.5-5.1) meq/L Chloride 87 L (98-107) meq/L Carbon Dioxide 27.5 (21.0-32.0) meq/L Anion Gap 14 (5-15) meq/L BUN 19 H (7-18) mg/dL Creatinine 1.58 H (0.60-1.30) mg/dL Estimated GFR 47 L (>89) mL/min POC Glucose (68-110) mg/dl Random Glucose 259 H (74-106) mg/dL Hemoglobin A1c (4.3-6.0) % Calcium 9.2 (8.5-10.1) mg/dL Total Bilirubin 1.6 H (0.2-1.0) mg/dL AST 54 H (15-37) U/L ALT 43 (12-78) U/L Alkaline Phosphatase 130 H (45-117) U/L Total Protein 8.6 H (6.4-8.2) g/dL Albumin 3.6 (3.4-5.0) g/dL Triglycerides (42-150) mg/dL Cholesterol (120-200) mg/dL LDL Cholesterol, Calc (0-99) mg/dL HDL Cholesterol (40.0-60.0) mg/dL Cholesterol/HDL Ratio Ratio Lipase 176 (73-393) U/L Urine Color (Yellw/Straw) Urine Clarity (Clear) Urine pH (5.0-8.5) Ur Specific [place] (1.002-1.035) Urine Protein (Neg-Trace) mg/dL Urine Glucose (UA) (Negative) mg/dL Urine Ketones (Negative) mg/dL Urine Occult Blood (Negative) Urine Nitrate (Negative) Urine Bilirubin (Negative) Urine Urobilinogen (Less than 2) mg/dL Ur Leukocyte Esterase (Negative) Urine RBC (0-3) /hpf Urine Bacteria (None) /hpf Hyaline Casts (0-3) /lpf Micro UA Comment Ur Microscopic Review Urine Culture Comments 12/05/17 12/05/17 12/05/17 Range/Units 06:50 12:11 17:12 WBC (4.0-11.0) th/mm3 RBC (4.50-5.90) mil/mm3 Hgb (13.0-17.0) gm/dL Hct (39.0-51.0) % MCV (80.0-100.0) fL MCH (27.0-34.0) pg MCHC (32.0-36.0) % RDW (11.6-17.2) % Plt Count (150-450) th/mm3 MPV (7.0-11.0) fL Prelim Diff (Auto) Neut % (Auto) (16.0-70.0) % Lymph % (Auto) (9.0-44.0) % [place] % (Auto) (0.0-8.0) % Eos % (Auto) (0.0-4.0) % Baso % (Auto) (0.0-2.0) % Neut # (Auto) (1.8-7.7) th/mm3 Lymph # (Auto) (1.0-4.8) th/mm3 [place] # (Auto) (0.0-0.9) th/mm3 Eos # (Auto) (0.0-0.4) th/mm3 Baso # (Auto) (0.0-0.2) th/mm3 WBC Differential Diff Scan Differential Comment Platelet Estimate (Normal) Platelet Morphology (Normal) PT (9.8-11.6) sec INR Ratio APTT (24.3-30.1) sec Sodium (136-145) meq/L Potassium (3.5-5.1) meq/L Chloride (98-107) meq/L Carbon Dioxide (21.0-32.0) meq/L Anion Gap (5-15) meq/L BUN (7-18) mg/dL Creatinine (0.60-1.30) mg/dL Estimated GFR (>89) mL/min POC Glucose 251 H 215 H (68-110) mg/dl Random Glucose (74-106) mg/dL Hemoglobin A1c (4.3-6.0) % Calcium (8.5-10.1) mg/dL Total Bilirubin (0.2-1.0) mg/dL AST (15-37) U/L ALT (12-78) U/L Alkaline Phosphatase (45-117) U/L Total Protein (6.4-8.2) g/dL Albumin (3.4-5.0) g/dL Triglycerides (42-150) mg/dL Cholesterol (120-200) mg/dL LDL Cholesterol, Calc (0-99) mg/dL HDL Cholesterol (40.0-60.0) mg/dL Cholesterol/HDL Ratio Ratio Lipase (73-393) U/L Urine Color Yellow (Yellw/Straw) Urine Clarity Clear (Clear) Urine pH 5.0 (5.0-8.5) Ur Specific [place] 1.009 (1.002-1.035) Urine Protein Negative (Neg-Trace) mg/dL Urine Glucose (UA) 150 H (Negative) mg/dL Urine Ketones Negative (Negative) mg/dL Urine Occult Blood Negative (Negative) Urine Nitrate Negative (Negative) Urine Bilirubin Negative (Negative) Urine Urobilinogen 2.0 H (Less than 2) mg/dL Ur Leukocyte Esterase Negative (Negative) Urine RBC 1 (0-3) /hpf Urine Bacteria Occasional H (None) /hpf Hyaline Casts 32 (0-3) /lpf Micro UA Comment Cath-culture ind Ur Microscopic Review Not Reportable Urine Culture Comments Cath-cult indicated 12/05/17 12/06/17 12/06/17 Range/Units 20:40 07:25 07:48 WBC 5.0 (4.0-11.0) th/mm3 RBC 4.05 L (4.50-5.90) mil/mm3 Hgb 13.8 (13.0-17.0) gm/dL Hct 38.6 L (39.0-51.0) % MCV 95.4 (80.0-100.0) fL MCH 34.1 H (27.0-34.0) pg MCHC 35.7 (32.0-36.0) % RDW 13.7 (11.6-17.2) % Plt Count 72 L (150-450) th/mm3 MPV 8.1 (7.0-11.0) fL Prelim Diff (Auto) Slide review pending Neut % (Auto) 70.6 H (16.0-70.0) % Lymph % (Auto) 19.7 (9.0-44.0) % [place] % (Auto) 8.7 H (0.0-8.0) % Eos % (Auto) 0.5 (0.0-4.0) % Baso % (Auto) 0.5 (0.0-2.0) % Neut # (Auto) 3.6 (1.8-7.7) th/mm3 Lymph # (Auto) 1.0 (1.0-4.8) th/mm3 [place] # (Auto) 0.4 (0.0-0.9) th/mm3 Eos # (Auto) 0.0 (0.0-0.4) th/mm3 Baso # (Auto) 0.0 (0.0-0.2) th/mm3 WBC Differential . Diff Scan Auto diff confirmed Differential Comment . Platelet Estimate Low L (Normal) Platelet Morphology Normal (Normal) PT (9.8-11.6) sec INR Ratio APTT (24.3-30.1) sec Sodium (136-145) meq/L Potassium (3.5-5.1) meq/L Chloride (98-107) meq/L Carbon Dioxide (21.0-32.0) meq/L Anion Gap (5-15) meq/L BUN (7-18) mg/dL Creatinine (0.60-1.30) mg/dL Estimated GFR (>89) mL/min POC Glucose 275 H 301 H (68-110) mg/dl Random Glucose (74-106) mg/dL Hemoglobin A1c (4.3-6.0) % Calcium (8.5-10.1) mg/dL Total Bilirubin (0.2-1.0) mg/dL AST (15-37) U/L ALT (12-78) U/L Alkaline Phosphatase (45-117) U/L Total Protein (6.4-8.2) g/dL Albumin (3.4-5.0) g/dL Triglycerides (42-150) mg/dL Cholesterol (120-200) mg/dL LDL Cholesterol, Calc (0-99) mg/dL HDL Cholesterol (40.0-60.0) mg/dL Cholesterol/HDL Ratio Ratio Lipase (73-393) U/L Urine Color (Yellw/Straw) Urine Clarity (Clear) Urine pH (5.0-8.5) Ur Specific [place] (1.002-1.035) Urine Protein (Neg-Trace) mg/dL Urine Glucose (UA) (Negative) mg/dL Urine Ketones (Negative) mg/dL Urine Occult Blood (Negative) Urine Nitrate (Negative) Urine Bilirubin (Negative) Urine Urobilinogen (Less than 2) mg/dL Ur Leukocyte Esterase (Negative) Urine RBC (0-3) /hpf Urine Bacteria (None) /hpf Hyaline Casts (0-3) /lpf Micro UA Comment Ur Microscopic Review Urine Culture Comments 12/06/17 12/06/17 12/06/17 Range/Units 07:48 11:34 16:05 WBC (4.0-11.0) th/mm3 RBC (4.50-5.90) mil/mm3 Hgb (13.0-17.0) gm/dL Hct (39.0-51.0) % MCV (80.0-100.0) fL MCH (27.0-34.0) pg MCHC (32.0-36.0) % RDW (11.6-17.2) % Plt Count (150-450) th/mm3 MPV (7.0-11.0) fL Prelim Diff (Auto) Neut % (Auto) (16.0-70.0) % Lymph % (Auto) (9.0-44.0) % [place] % (Auto) (0.0-8.0) % Eos % (Auto) (0.0-4.0) % Baso % (Auto) (0.0-2.0) % Neut # (Auto) (1.8-7.7) th/mm3 Lymph # (Auto) (1.0-4.8) th/mm3 [place] # (Auto) (0.0-0.9) th/mm3 Eos # (Auto) (0.0-0.4) th/mm3 Baso # (Auto) (0.0-0.2) th/mm3 WBC Differential Diff Scan Differential Comment Platelet Estimate (Normal) Platelet Morphology (Normal) PT (9.8-11.6) sec INR Ratio APTT (24.3-30.1) sec Sodium 131 L (136-145) meq/L Potassium 2.5 L* (3.5-5.1) meq/L Chloride 89 L (98-107) meq/L Carbon Dioxide 28.2 (21.0-32.0) meq/L Anion Gap 14 (5-15) meq/L BUN 19 H (7-18) mg/dL Creatinine 1.27 (0.60-1.30) mg/dL Estimated GFR 61 L (>89) mL/min POC Glucose 261 H 301 H (68-110) mg/dl Random Glucose 249 H (74-106) mg/dL Hemoglobin A1c (4.3-6.0) % Calcium 8.1 L D (8.5-10.1) mg/dL Total Bilirubin 1.3 H (0.2-1.0) mg/dL AST 46 H (15-37) U/L ALT 33 (12-78) U/L Alkaline Phosphatase 106 (45-117) U/L Total Protein 7.7 D (6.4-8.2) g/dL Albumin 3.2 L (3.4-5.0) g/dL Triglycerides (42-150) mg/dL Cholesterol (120-200) mg/dL LDL Cholesterol, Calc (0-99) mg/dL HDL Cholesterol (40.0-60.0) mg/dL Cholesterol/HDL Ratio Ratio Lipase (73-393) U/L Urine Color (Yellw/Straw) Urine Clarity (Clear) Urine pH (5.0-8.5) Ur Specific [place] (1.002-1.035) Urine Protein (Neg-Trace) mg/dL Urine Glucose (UA) (Negative) mg/dL Urine Ketones (Negative) mg/dL Urine Occult Blood (Negative) Urine Nitrate (Negative) Urine Bilirubin (Negative) Urine Urobilinogen (Less than 2) mg/dL Ur Leukocyte Esterase (Negative) Urine RBC (0-3) /hpf Urine Bacteria (None) /hpf Hyaline Casts (0-3) /lpf Micro UA Comment Ur Microscopic Review Urine Culture Comments 12/06/17 12/07/17 12/07/17 Range/Units 21:02 05:54 05:54 WBC 4.5 (4.0-11.0) th/mm3 RBC 3.97 L (4.50-5.90) mil/mm3 Hgb 13.5 (13.0-17.0) gm/dL Hct 38.7 L (39.0-51.0) % MCV 97.5 (80.0-100.0) fL MCH 34.0 (27.0-34.0) pg MCHC 34.9 (32.0-36.0) % RDW 13.6 (11.6-17.2) % Plt Count 62 L (150-450) th/mm3 MPV 8.5 (7.0-11.0) fL Prelim Diff (Auto) Slide review pending Neut % (Auto) 68.6 (16.0-70.0) % Lymph % (Auto) 22.2 (9.0-44.0) % [place] % (Auto) 8.4 H (0.0-8.0) % Eos % (Auto) 0.3 (0.0-4.0) % Baso % (Auto) 0.5 (0.0-2.0) % Neut # (Auto) 3.1 (1.8-7.7) th/mm3 Lymph # (Auto) 1.0 (1.0-4.8) th/mm3 [place] # (Auto) 0.4 (0.0-0.9) th/mm3 Eos # (Auto) 0.0 (0.0-0.4) th/mm3 Baso # (Auto) 0.0 (0.0-0.2) th/mm3 WBC Differential . Diff Scan Auto diff confirmed Differential Comment . Platelet Estimate Low L (Normal) Platelet Morphology Normal (Normal) PT (9.8-11.6) sec INR Ratio APTT (24.3-30.1) sec Sodium 130 L (136-145) meq/L Potassium 3.1 L (3.5-5.1) meq/L Chloride 92 L (98-107) meq/L Carbon Dioxide 27.2 (21.0-32.0) meq/L Anion Gap 11 (5-15) meq/L BUN 20 H (7-18) mg/dL Creatinine 1.37 H (0.60-1.30) mg/dL Estimated GFR 55 L (>89) mL/min POC Glucose 205 H (68-110) mg/dl Random Glucose 263 H (74-106) mg/dL Hemoglobin A1c (4.3-6.0) % Calcium 8.3 L (8.5-10.1) mg/dL Total Bilirubin 1.2 H (0.2-1.0) mg/dL AST 63 H (15-37) U/L ALT 37 (12-78) U/L Alkaline Phosphatase 114 (45-117) U/L Total Protein 7.8 (6.4-8.2) g/dL Albumin 3.1 L (3.4-5.0) g/dL Triglycerides 167 H (42-150) mg/dL Cholesterol 138 (120-200) mg/dL LDL Cholesterol, Calc 61 (0-99) mg/dL HDL Cholesterol 43.2 (40.0-60.0) mg/dL Cholesterol/HDL Ratio 3.19 Ratio Lipase (73-393) U/L Urine Color (Yellw/Straw) Urine Clarity (Clear) Urine pH (5.0-8.5) Ur Specific [place] (1.002-1.035) Urine Protein (Neg-Trace) mg/dL Urine Glucose (UA) (Negative) mg/dL Urine Ketones (Negative) mg/dL Urine Occult Blood (Negative) Urine Nitrate (Negative) Urine Bilirubin (Negative) Urine Urobilinogen (Less than 2) mg/dL Ur Leukocyte Esterase (Negative) Urine RBC (0-3) /hpf Urine Bacteria (None) /hpf Hyaline Casts (0-3) /lpf Micro UA Comment Ur Microscopic Review Urine Culture Comments 12/07/17 12/07/17 12/07/17 Range/Units 05:54 07:59 11:12 WBC (4.0-11.0) th/mm3 RBC (4.50-5.90) mil/mm3 Hgb (13.0-17.0) gm/dL Hct (39.0-51.0) % MCV (80.0-100.0) fL MCH (27.0-34.0) pg MCHC (32.0-36.0) % RDW (11.6-17.2) % Plt Count (150-450) th/mm3 MPV (7.0-11.0) fL Prelim Diff (Auto) Neut % (Auto) (16.0-70.0) % Lymph % (Auto) (9.0-44.0) % [place] % (Auto) (0.0-8.0) % Eos % (Auto) (0.0-4.0) % Baso % (Auto) (0.0-2.0) % Neut # (Auto) (1.8-7.7) th/mm3 Lymph # (Auto) (1.0-4.8) th/mm3 [place] # (Auto) (0.0-0.9) th/mm3 Eos # (Auto) (0.0-0.4) th/mm3 Baso # (Auto) (0.0-0.2) th/mm3 WBC Differential Diff Scan Differential Comment Platelet Estimate (Normal) Platelet Morphology (Normal) PT (9.8-11.6) sec INR Ratio APTT (24.3-30.1) sec Sodium (136-145) meq/L Potassium (3.5-5.1) meq/L Chloride (98-107) meq/L Carbon Dioxide (21.0-32.0) meq/L Anion Gap (5-15) meq/L BUN (7-18) mg/dL Creatinine (0.60-1.30) mg/dL Estimated GFR (>89) mL/min POC Glucose 300 H 427 H (68-110) mg/dl Random Glucose (74-106) mg/dL Hemoglobin A1c 8.9 H (4.3-6.0) % Calcium (8.5-10.1) mg/dL Total Bilirubin (0.2-1.0) mg/dL AST (15-37) U/L ALT (12-78) U/L Alkaline Phosphatase (45-117) U/L Total Protein (6.4-8.2) g/dL Albumin (3.4-5.0) g/dL Triglycerides (42-150) mg/dL Cholesterol (120-200) mg/dL LDL Cholesterol, Calc (0-99) mg/dL HDL Cholesterol (40.0-60.0) mg/dL Cholesterol/HDL Ratio Ratio Lipase (73-393) U/L Urine Color (Yellw/Straw) Urine Clarity (Clear) Urine pH (5.0-8.5) Ur Specific [place] (1.002-1.035) Urine Protein (Neg-Trace) mg/dL Urine Glucose (UA) (Negative) mg/dL Urine Ketones (Negative) mg/dL Urine Occult Blood (Negative) Urine Nitrate (Negative) Urine Bilirubin (Negative) Urine Urobilinogen (Less than 2) mg/dL Ur Leukocyte Esterase (Negative) Urine RBC (0-3) /hpf Urine Bacteria (None) /hpf Hyaline Casts (0-3) /lpf Micro UA Comment Ur Microscopic Review Urine Culture Comments 12/07/17 12/07/17 12/08/17 Range/Units 17:17 20:38 04:57 WBC (4.0-11.0) th/mm3 RBC (4.50-5.90) mil/mm3 Hgb (13.0-17.0) gm/dL Hct (39.0-51.0) % MCV (80.0-100.0) fL MCH (27.0-34.0) pg MCHC (32.0-36.0) % RDW (11.6-17.2) % Plt Count (150-450) th/mm3 MPV (7.0-11.0) fL Prelim Diff (Auto) Neut % (Auto) (16.0-70.0) % Lymph % (Auto) (9.0-44.0) % [place] % (Auto) (0.0-8.0) % Eos % (Auto) (0.0-4.0) % Baso % (Auto) (0.0-2.0) % Neut # (Auto) (1.8-7.7) th/mm3 Lymph # (Auto) (1.0-4.8) th/mm3 [place] # (Auto) (0.0-0.9) th/mm3 Eos # (Auto) (0.0-0.4) th/mm3 Baso # (Auto) (0.0-0.2) th/mm3 WBC Differential Diff Scan Differential Comment Platelet Estimate (Normal) Platelet Morphology (Normal) PT (9.8-11.6) sec INR Ratio APTT (24.3-30.1) sec Sodium 134 L (136-145) meq/L Potassium 3.5 (3.5-5.1) meq/L Chloride 97 L (98-107) meq/L Carbon Dioxide 26.5 (21.0-32.0) meq/L Anion Gap 11 (5-15) meq/L BUN 15 (7-18) mg/dL Creatinine 1.05 (0.60-1.30) mg/dL Estimated GFR 75 L (>89) mL/min POC Glucose 282 H 205 H (68-110) mg/dl Random Glucose 201 H (74-106) mg/dL Hemoglobin A1c (4.3-6.0) % Calcium 8.6 (8.5-10.1) mg/dL Total Bilirubin 1.0 (0.2-1.0) mg/dL AST 51 H (15-37) U/L ALT 38 (12-78) U/L Alkaline Phosphatase 115 (45-117) U/L Total Protein 7.7 (6.4-8.2) g/dL Albumin 3.0 L (3.4-5.0) g/dL Triglycerides (42-150) mg/dL Cholesterol (120-200) mg/dL LDL Cholesterol, Calc (0-99) mg/dL HDL Cholesterol (40.0-60.0) mg/dL Cholesterol/HDL Ratio Ratio Lipase (73-393) U/L Urine Color (Yellw/Straw) Urine Clarity (Clear) Urine pH (5.0-8.5) Ur Specific [place] (1.002-1.035) Urine Protein (Neg-Trace) mg/dL Urine Glucose (UA) (Negative) mg/dL Urine Ketones (Negative) mg/dL Urine Occult Blood (Negative) Urine Nitrate (Negative) Urine Bilirubin (Negative) Urine Urobilinogen (Less than 2) mg/dL Ur Leukocyte Esterase (Negative) Urine RBC (0-3) /hpf Urine Bacteria (None) /hpf Hyaline Casts (0-3) /lpf Micro UA Comment Ur Microscopic Review Urine Culture Comments 12/08/17 12/08/17 12/08/17 Range/Units 08:00 11:53 16:33 WBC (4.0-11.0) th/mm3 RBC (4.50-5.90) mil/mm3 Hgb (13.0-17.0) gm/dL Hct (39.0-51.0) % MCV (80.0-100.0) fL MCH (27.0-34.0) pg MCHC (32.0-36.0) % RDW (11.6-17.2) % Plt Count (150-450) th/mm3 MPV (7.0-11.0) fL Prelim Diff (Auto) Neut % (Auto) (16.0-70.0) % Lymph % (Auto) (9.0-44.0) % [place] % (Auto) (0.0-8.0) % Eos % (Auto) (0.0-4.0) % Baso % (Auto) (0.0-2.0) % Neut # (Auto) (1.8-7.7) th/mm3 Lymph # (Auto) (1.0-4.8) th/mm3 [place] # (Auto) (0.0-0.9) th/mm3 Eos # (Auto) (0.0-0.4) th/mm3 Baso # (Auto) (0.0-0.2) th/mm3 WBC Differential Diff Scan Differential Comment Platelet Estimate (Normal) Platelet Morphology (Normal) PT (9.8-11.6) sec INR Ratio APTT (24.3-30.1) sec Sodium (136-145) meq/L Potassium (3.5-5.1) meq/L Chloride (98-107) meq/L Carbon Dioxide (21.0-32.0) meq/L Anion Gap (5-15) meq/L BUN (7-18) mg/dL Creatinine (0.60-1.30) mg/dL Estimated GFR (>89) mL/min POC Glucose 222 H 288 H 226 H (68-110) mg/dl Random Glucose (74-106) mg/dL Hemoglobin A1c (4.3-6.0) % Calcium (8.5-10.1) mg/dL Total Bilirubin (0.2-1.0) mg/dL AST (15-37) U/L ALT (12-78) U/L Alkaline Phosphatase (45-117) U/L Total Protein (6.4-8.2) g/dL Albumin (3.4-5.0) g/dL Triglycerides (42-150) mg/dL Cholesterol (120-200) mg/dL LDL Cholesterol, Calc (0-99) mg/dL HDL Cholesterol (40.0-60.0) mg/dL Cholesterol/HDL Ratio Ratio Lipase (73-393) U/L Urine Color (Yellw/Straw) Urine Clarity (Clear) Urine pH (5.0-8.5) Ur Specific [place] (1.002-1.035) Urine Protein (Neg-Trace) mg/dL Urine Glucose (UA) (Negative) mg/dL Urine Ketones (Negative) mg/dL Urine Occult Blood (Negative) Urine Nitrate (Negative) Urine Bilirubin (Negative) Urine Urobilinogen (Less than 2) mg/dL Ur Leukocyte Esterase (Negative) Urine RBC (0-3) /hpf Urine Bacteria (None) /hpf Hyaline Casts (0-3) /lpf Micro UA Comment Ur Microscopic Review Urine Culture Comments 12/08/17 12/09/17 12/09/17 Range/Units 21:26 08:11 08:11 WBC 4.9 (4.0-11.0) th/mm3 RBC 4.00 L (4.50-5.90) mil/mm3 Hgb 13.7 (13.0-17.0) gm/dL Hct 39.0 (39.0-51.0) % MCV 97.4 (80.0-100.0) fL MCH 34.2 H (27.0-34.0) pg MCHC 35.1 (32.0-36.0) % RDW 13.5 (11.6-17.2) % Plt Count 91 L D (150-450) th/mm3 MPV 8.4 (7.0-11.0) fL Prelim Diff (Auto) Slide review pending Neut % (Auto) 64.2 (16.0-70.0) % Lymph % (Auto) 25.8 (9.0-44.0) % [place] % (Auto) 9.2 H (0.0-8.0) % Eos % (Auto) 0.5 (0.0-4.0) % Baso % (Auto) 0.3 (0.0-2.0) % Neut # (Auto) 3.2 (1.8-7.7) th/mm3 Lymph # (Auto) 1.3 (1.0-4.8) th/mm3 [place] # (Auto) 0.5 (0.0-0.9) th/mm3 Eos # (Auto) 0.0 (0.0-0.4) th/mm3 Baso # (Auto) 0.0 (0.0-0.2) th/mm3 WBC Differential . Diff Scan Auto diff confirmed Differential Comment . Platelet Estimate (Normal) Platelet Morphology (Normal) PT (9.8-11.6) sec INR Ratio APTT (24.3-30.1) sec Sodium 134 L (136-145) meq/L Potassium 3.9 (3.5-5.1) meq/L Chloride 98 (98-107) meq/L Carbon Dioxide 25.1 (21.0-32.0) meq/L Anion Gap 11 (5-15) meq/L BUN 12 (7-18) mg/dL Creatinine 0.93 (0.60-1.30) mg/dL Estimated GFR 87 L (>89) mL/min POC Glucose 225 H (68-110) mg/dl Random Glucose 187 H (74-106) mg/dL Hemoglobin A1c (4.3-6.0) % Calcium 8.6 (8.5-10.1) mg/dL Total Bilirubin (0.2-1.0) mg/dL AST (15-37) U/L ALT (12-78) U/L Alkaline Phosphatase (45-117) U/L Total Protein (6.4-8.2) g/dL Albumin (3.4-5.0) g/dL Triglycerides (42-150) mg/dL Cholesterol (120-200) mg/dL LDL Cholesterol, Calc (0-99) mg/dL HDL Cholesterol (40.0-60.0) mg/dL Cholesterol/HDL Ratio Ratio Lipase (73-393) U/L Urine Color (Yellw/Straw) Urine Clarity (Clear) Urine pH (5.0-8.5) Ur Specific [place] (1.002-1.035) Urine Protein (Neg-Trace) mg/dL Urine Glucose (UA) (Negative) mg/dL Urine Ketones (Negative) mg/dL Urine Occult Blood (Negative) Urine Nitrate (Negative) Urine Bilirubin (Negative) Urine Urobilinogen (Less than 2) mg/dL Ur Leukocyte Esterase (Negative) Urine RBC (0-3) /hpf Urine Bacteria (None) /hpf Hyaline Casts (0-3) /lpf Micro UA Comment Ur Microscopic Review Urine Culture Comments 12/09/17 12/09/17 12/09/17 Range/Units 08:35 12:07 17:40 WBC (4.0-11.0) th/mm3 RBC (4.50-5.90) mil/mm3 Hgb (13.0-17.0) gm/dL Hct (39.0-51.0) % MCV (80.0-100.0) fL MCH (27.0-34.0) pg MCHC (32.0-36.0) % RDW (11.6-17.2) % Plt Count (150-450) th/mm3 MPV (7.0-11.0) fL Prelim Diff (Auto) Neut % (Auto) (16.0-70.0) % Lymph % (Auto) (9.0-44.0) % [place] % (Auto) (0.0-8.0) % Eos % (Auto) (0.0-4.0) % Baso % (Auto) (0.0-2.0) % Neut # (Auto) (1.8-7.7) th/mm3 Lymph # (Auto) (1.0-4.8) th/mm3 [place] # (Auto) (0.0-0.9) th/mm3 Eos # (Auto) (0.0-0.4) th/mm3 Baso # (Auto) (0.0-0.2) th/mm3 WBC Differential Diff Scan Differential Comment Platelet Estimate (Normal) Platelet Morphology (Normal) PT (9.8-11.6) sec INR Ratio APTT (24.3-30.1) sec Sodium (136-145) meq/L Potassium (3.5-5.1) meq/L Chloride (98-107) meq/L Carbon Dioxide (21.0-32.0) meq/L Anion Gap (5-15) meq/L BUN (7-18) mg/dL Creatinine (0.60-1.30) mg/dL Estimated GFR (>89) mL/min POC Glucose 203 H 235 H 153 H (68-110) mg/dl Random Glucose (74-106) mg/dL Hemoglobin A1c (4.3-6.0) % Calcium (8.5-10.1) mg/dL Total Bilirubin (0.2-1.0) mg/dL AST (15-37) U/L ALT (12-78) U/L Alkaline Phosphatase (45-117) U/L Total Protein (6.4-8.2) g/dL Albumin (3.4-5.0) g/dL Triglycerides (42-150) mg/dL Cholesterol (120-200) mg/dL LDL Cholesterol, Calc (0-99) mg/dL HDL Cholesterol (40.0-60.0) mg/dL Cholesterol/HDL Ratio Ratio Lipase (73-393) U/L Urine Color (Yellw/Straw) Urine Clarity (Clear) Urine pH (5.0-8.5) Ur Specific [place] (1.002-1.035) Urine Protein (Neg-Trace) mg/dL Urine Glucose (UA) (Negative) mg/dL Urine Ketones (Negative) mg/dL Urine Occult Blood (Negative) Urine Nitrate (Negative) Urine Bilirubin (Negative) Urine Urobilinogen (Less than 2) mg/dL Ur Leukocyte Esterase (Negative) Urine RBC (0-3) /hpf Urine Bacteria (None) /hpf Hyaline Casts (0-3) /lpf Micro UA Comment Ur Microscopic Review Urine Culture Comments 12/09/17 12/10/17 Range/Units 21:26 08:27 WBC (4.0-11.0) th/mm3 RBC (4.50-5.90) mil/mm3 Hgb (13.0-17.0) gm/dL Hct (39.0-51.0) % MCV (80.0-100.0) fL MCH (27.0-34.0) pg MCHC (32.0-36.0) % RDW (11.6-17.2) % Plt Count (150-450) th/mm3 MPV (7.0-11.0) fL Prelim Diff (Auto) Neut % (Auto) (16.0-70.0) % Lymph % (Auto) (9.0-44.0) % [place] % (Auto) (0.0-8.0) % Eos % (Auto) (0.0-4.0) % Baso % (Auto) (0.0-2.0) % Neut # (Auto) (1.8-7.7) th/mm3 Lymph # (Auto) (1.0-4.8) th/mm3 [place] # (Auto) (0.0-0.9) th/mm3 Eos # (Auto) (0.0-0.4) th/mm3 Baso # (Auto) (0.0-0.2) th/mm3 WBC Differential Diff Scan Differential Comment Platelet Estimate (Normal) Platelet Morphology (Normal) PT (9.8-11.6) sec INR Ratio APTT (24.3-30.1) sec Sodium (136-145) meq/L Potassium (3.5-5.1) meq/L Chloride (98-107) meq/L Carbon Dioxide (21.0-32.0) meq/L Anion Gap (5-15) meq/L BUN (7-18) mg/dL Creatinine (0.60-1.30) mg/dL Estimated GFR (>89) mL/min POC Glucose 280 H 216 H (68-110) mg/dl Random Glucose (74-106) mg/dL Hemoglobin A1c (4.3-6.0) % Calcium (8.5-10.1) mg/dL Total Bilirubin (0.2-1.0) mg/dL AST (15-37) U/L ALT (12-78) U/L Alkaline Phosphatase (45-117) U/L Total Protein (6.4-8.2) g/dL Albumin (3.4-5.0) g/dL Triglycerides (42-150) mg/dL Cholesterol (120-200) mg/dL LDL Cholesterol, Calc (0-99) mg/dL HDL Cholesterol (40.0-60.0) mg/dL Cholesterol/HDL Ratio Ratio Lipase (73-393) U/L Urine Color (Yellw/Straw) Urine Clarity (Clear) Urine pH (5.0-8.5) Ur Specific [place] (1.002-1.035) Urine Protein (Neg-Trace) mg/dL Urine Glucose (UA) (Negative) mg/dL Urine Ketones (Negative) mg/dL Urine Occult Blood (Negative) Urine Nitrate (Negative) Urine Bilirubin (Negative) Urine Urobilinogen (Less than 2) mg/dL Ur Leukocyte Esterase (Negative) Urine RBC (0-3) /hpf Urine Bacteria (None) /hpf Hyaline Casts (0-3) /lpf Micro UA Comment Ur Microscopic Review Urine Culture Comments Imaging Data Radiologist's impression: Bile Acid Absorption NM 12/05/17 00:00 CONCLUSION: 1. Negative for cystic duct or common duct obstruction 2. Poor response to CCK, nonspecific Abdomen/Pelvis CT 12/05/17 06:17 CONCLUSION: 1. Fatty replacement to the liver 2. Gallstones in a benign-appearing gallbladder 3. Do not see an etiology for right-sided abdominal pain. Abdomen/Bladder Ultrasound 12/08/17 00:00 CONCLUSION: 1. Normal sonographic appearance of the kidneys. 2. No evidence of obstructive uropathy. 3. Hepatomegaly with abnormal echotexture characteristic of diffuse hepatocellular disease. Lumbar Spine X-Ray 12/08/17 00:00 CONCLUSION: Negative for acute process Discharge Plan Discharge Disposition Patient Disposition: 30 Still Patient Discharge Condition Condition: Stable Discharge Order Discharge Orders: Discharge Order (Routine); Ordered 12/10/17 Ordered By: Nelli Cox Discharge Details Anticipated Discharge Date: 12/05/17 Diagnosis: Hyponatremia, GERHARD (acute kidney injury), Anasarca Physicians Team ED Provider: Keith Silvestre Primary Care Provider: Primary Care Vibha Rivas Attending Provider: Nelli Cox Other Providers: Hussein Garber Discharge Interventions Interventions: ED Discharge Assessment Last Done: 12/05/17 11:38 Status ED Status: Left Department Discharge Information Discharge Date/Time: 12/05/17 11:35
[2017-12-05 06:58] LABS: Baso % (Auto) 0.4 % (0.0-2.0); Eos % (Auto) 0.1 % (0.0-4.0); Hematocrit 42.3 % (39.0-51.0); Hemoglobin 15.3 gm/dL (13.0-17.0); Lymph # (Auto) 1.1 th/mm3 (1.0-4.8); Lymph % (Auto) 17.6 % (9.0-44.0); Mean Corpuscular Hemoglobin 34.2 pg (27.0-34.0); Mean Corpuscular Volume 94.6 fL (80.0-100.0); Mean Platelet Volume 7.8 fL (7.0-11.0); Mono # (Auto) 0.6 th/mm3 (0.0-0.9); Mono % (Auto) 8.8 % (0.0-8.0); Neut # (Auto) 4.6 th/mm3 (1.8-7.7); Neut % (Auto) 73.1 % (16.0-70.0); Platelet Count 90 th/mm3 (150-450); Red Blood Count 4.47 mil/mm3 (4.50-5.90); Red Cell Distribution Width 13.6 % (11.6-17.2); White Blood Count 6.3 th/mm3 (4.0-11.0)
[2017-12-05 06:59] LABS: Mean Corpuscular HGB Conc 36.2 % (32.0-36.0)
[2017-12-05 07:02] LABS: Bacteria,Urine Occasional /hpf; Bilirubin,Urine Negative (Negative); Clarity,Urine Clear (Clear); Color,Urine Yellow (Yellw/Straw); Glucose,Urine (UA) 150 mg/dL (Negative); Hyaline Casts,Urine 32 /lpf (0-3); Leukocyte Esterase,Urine Negative (Negative); Nitrite,Urine Negative (Negative); Specific Gravity,Urine 1.009 (1.002-1.035)
[2017-12-05 07:10] LABS: Activated Partial Thrombo Time 25.8 sec (24.3-30.1); INR 1.2 Ratio
[2017-12-05 07:23] LABS: Albumin 3.6 g/dL (3.4-5.0); Anion Gap 14 meq/L (5-15); Aspartate Aminotransferase 54 U/L (15-37); Blood Urea Nitrogen 19 mg/dL (7-18); Calcium 9.2 mg/dL (8.5-10.1); Carbon Dioxide 27.5 meq/L (21.0-32.0); Chloride 87 meq/L (98-107); Glomerular Filtration Rate 47 mL/min (>89); Glucose,Random 259 mg/dL (74-106); Lipase 176 U/L (73-393); Potassium 3.1 meq/L (3.5-5.1); Sodium 128 meq/L (136-145)
[2017-12-05 07:24] LABS: Alanine Aminotransferase 43 U/L (12-78)
[2017-12-05 07:26] LABS: Alkaline Phosphatase 130 U/L (45-117); Total Protein 8.6 g/dL (6.4-8.2)
[2017-12-05] MEDS ORDERED: Morphine Inj 4 MG/ML Vial IV.PUSH ONE (07:43)
[2017-12-05 07:55] LABS: Platelet Morphology Normal (Normal)
--- NOTE | 2017-12-05 09:14 | CT ---
EXAM DATE: 12/05/2017 8:57 AM EDT AGE/SEX: 47 years / Male INDICATIONS: Right abdominal pain with nausea and vomiting. Inability to urinate. CLINICAL DATA: This is the patient's initial encounter. Patient reports that signs and symptoms have been present for 1 day and indicates a pain score of 4/10. MEDICAL/SURGICAL HISTORY: Diabetes. Hypertension. None. ORAL CONTRAST: No oral contrast ingested. RADIATION DOSE: 13.73 CTDI (mGy) [place] [facility] [place] 03/27/2017. . TECHNIQUE: Multiple contiguous axial images were obtained through the abdomen and pelvis following b olus infusion of 92 ml Omnipaque 350 (iohexol) nonionic water-soluble contrast as a single exam dos e. No oral contrast ingested. Using automated exposure control and adjustment of the mA and/or kV ac cording to patient size, radiation dose was kept as low as reasonably achievable to obtain optimal di agnostic quality images. DICOM format image data is available electronically for review and comparis on. FINDINGS: Lungs are clear. Moderate fatty replacement to the liver with a nodular appearance. Calcified gallstone in a benign-appearing gallbladder Spleen and pancreas unremarkable Adrenal glands appear normal Symmetrical renal function without renal mass Cecum, a sending, transverse and descending colon appear normal. There are no inflammatory changes in the mesentery. Jha catheter is in a partially decompressed bladder. Prostate is normal size There is no ascites. Review of bone windows reveals only degenerative changes. CONCLUSION: 1. Fatty replacement to the liver 2. Gallstones in a benign-appearing gallbladder 3. Do not see an etiology for right-sided abdominal pain. Electronically signed by: John Simmons MD 12/05/2017 9:13 AM EDT
--- NOTE | 2017-12-05 10:46 | P.HPIM ---
History of Present Illness Primary Care Physician: No Primary Care Physician History of Present Illness: Mr. Moran is a 47-year-old male. He has a past history of chronic liver disease. He had a paracentesis but his paracentesis was last performed June 2015. He comes in the hospital reporting 3-4 days of abdominal pain which has been progressive. In the last 30 hours he has not been able to urinate. Laboratory findings are hyponatremia and hypokalemia. Acute kidney injury is present with an approximate 100% increase in creatinine compared to baseline. No hyperemesis reported. No nausea. Abdominal pain is reported as a deep sharp pain which is sometimes exacerbated or relieved by position . CT of the abdomen shows no acute pathology including no evidence of acute ascites. Urinary catheter has been placed in the emergency department. Lack of ability to urinate is not coupled with the lack of urine so urinary obstruction may be present. Acute abdominal pain etiology could be related to urinary obstruction , acute renal failure, cholecystitis, or other abdominal pathology. Again, CT does not show any evidence of acute cholecystitis and shows no acute changes in the abdomen. - Diagnosis (1) Hyponatremia (2) Hypokalemia (3) Urinary obstruction (4) Abdominal pain Review of Systems Constitutional: No fevers, no chills no night sweats, no fatigue, no weakness, decreased urinary output Eyes: No eye pain, no blurry vision, no loss of vision ENT: No sore throat, no ear pain, no rhinorrhea Cardiovascular: No chest pain, no tachycardia, no palpitations, no shortness of breath, no syncope Respiratory: No wheezing, no cough, no shortness of breath Gastrointestinal: Abdominal pain, no black tarry stools, no bright red blood per rectum, no vomiting, no diarrhea Musculoskeletal: No joint pain, no muscle cramps, no stiffness Integumentary: No rash, no ulcers, no drainage Neurologic: No sensory loss, no loss of motor function, no dizziness Psychiatric: No behavioral changes, no hallucinations, no suicidal ideations PMFSH - History History Provided By: Patient - Medical History Medical History: Medical History (Last Updated 12/05/17 @ 10:41 by Michael Andersen MD) Ascites Chronic liver disease Diabetes History of abdominal paracentesis Hypertension - Family History Family History: Family History (Last Updated 12/05/17 @ 10:40 by Michael Andersen MD) Other Osteoarthritis - Tobacco History Tobacco Use In Past 30 Days: Yes Smoking Status: Current every day smoker Tobacco Type: Cigarettes - Alcohol History How Often Do You Have a Drink Containing Alcohol: 2 to 4 times a month - Travel History Recent Travel in the [place] Within the Last 8 Weeks: No Recent Travel Out of the Country Within the Last 8 Weeks: No - Immunization History Tetanus Immunization: <5 Years Hx Influenza Vaccine This Season: Yes Medications and Allergies Active Medications: Active Medications Al Hydroxide/Mg Hydroxide (Milk Of Leo Liq) 30 ml PO Q12H PRN PRN Reason: Mild Constipation Alprazolam (Xanax) 1 mg PO BID PRN PRN Reason: Anxiety Furosemide (Lasix) 20 mg PO BID RAJENDRA Ondansetron HCl (Zofran Inj) 4 mg IV.PUSH Q6H PRN PRN Reason: NAUSEA OR VOMITING Pantoprazole Sodium (Protonix) 20 mg PO DAILY RAJENDRA Propranolol HCl (Inderal) 10 mg PO BID RAJENDRA Sodium Chloride (Ns Flush) 2 ml IV.FLUSH PRN PRN PRN Reason: FLUSH AFTER USING IV ACCESS Spironolactone (Aldactone) 50 mg PO BID RAJENDRA Allergies Allergy/AdvReac Type Severity Reaction Status Date / Time ceftriaxone Allergy Mild rash Verified 12/05/17 07:22 metronidazole AdvReac Severe Rash Verified 12/05/17 07:22 Home Medications Medication Instructions Recorded Confirmed Type alprazolam [Xanax] 1 mg PO BID PRN 12/05/17 12/05/17 History furosemide 0.5 tab PO BID 12/05/17 12/05/17 History pantoprazole [Protonix] 20 mg PO DAILY 12/05/17 12/05/17 History propranolol 10 mg PO BID 12/05/17 12/05/17 History spironolactone 2 tab PO BID 12/05/17 12/05/17 History Exam Vital signs: Vital Signs 12/05/17 05:45 12/05/17 07:14 12/05/17 09:28 Temperature 97.9 F Pulse Rate 109 H 100 H 102 H Respiratory Rate 16 19 18 Blood Pressure 116/79 111/67 119/74 Pulse Oximetry 98 97 99 Intake & Output 12/04/17 12/05/17 12/05/17 18:59 06:59 18:59 Weight 108 kg Narrative: GENERAL: NAD, A&Ox3 HEAD: Normocephalic. NECK: Supple, trachea midline. No lymphadenopathy. EYES: No scleral icterus. No injection or drainage. CARDIOVASCULAR: Regular rate and rhythm without murmurs, gallops, or rubs. RESPIRATORY: Breath sounds equal bilaterally. No accessory muscle use. GASTROINTESTINAL: Abdomen soft, tenderness present diffusely but most focused of the right upper quadrant. MUSCULOSKELETAL: No cyanosis, or edema. SKIN: Warm and dry. NEURO: No focal neurological deficits. Results - Labs CBC & Chem 7: 12/05/17 06:45 12/05/17 06:45 Labs: Short CBC 12/05/17 Range/Units 06:45 WBC 6.3 (4.0-11.0) th/mm3 Hgb 15.3 (13.0-17.0) gm/dL Hct 42.3 (39.0-51.0) % Plt Count 90 L (150-450) th/mm3 BMP 12/05/17 06:45 Sodium 128 L Potassium 3.1 L Chloride 87 L Carbon Dioxide 27.5 BUN 19 H Creatinine 1.58 H Calcium 9.2 Liver Function 12/05/17 Range/Units 06:45 Total Bilirubin 1.6 H (0.2-1.0) mg/dL AST 54 H (15-37) U/L ALT 43 (12-78) U/L Alkaline Phosphatase 130 H (45-117) U/L Albumin 3.6 (3.4-5.0) g/dL Urine 12/05/17 Range/Units 06:50 Urine Color Yellow (Yellw/Straw) Urine Clarity Clear (Clear) Urine pH 5.0 (5.0-8.5) Ur Specific [place] 1.009 (1.002-1.035) Urine Protein Negative (Neg-Trace) mg/dL Urine Glucose (UA) 150 H (Negative) mg/dL - Imaging Impressions Abdomen/Pelvis CT 12/05/17 06:17 CONCLUSION: 1. Fatty replacement to the liver 2. Gallstones in a benign-appearing gallbladder 3. Do not see an etiology for right-sided abdominal pain. Caprini VTE Risk Assessment Caprini VTE Risk Assessment: No/Low Risk (score <= 1) Caprini Risk Assessment Model: Point Value = 1 Point Value = 2 Point Value = 3 Point Value = 5 Age 41-60 Minor surgery BMI > 25 kg/m2 Swollen legs Varicose veins or History of unexplained or recurrent spontaneous Oral contraceptives or hormone replacement Sepsis (< 1 month) Serious lung disease, including pneumonia (< 1 month) Abnormal pulmonary function Acute myocardial infarction Congestive heart failure (< 1 month) History of inflammatory bowel disease Medical patient at bed rest Age 61-74 Arthroscopic surgery Major open surgery (> 45 min) Laparoscopic surgery (> 45 min) Malignancy Confined to bed (> 72 hours) Immobilizing plaster cast Central venous access Age >= 75 History of VTE Family history of VTE Factor V Leiden Prothrombin [id number] Lupus anticoagulant Anticardiolipin antibodies Elevated serum homocysteine Heparin-induced thrombocytopenia Other congenital or acquired thrombophilia Stroke (< 1 month) Elective arthroplasty Hip, pelvis, or leg fracture Acute spinal cord injury (< 1 month) Prophylaxis Regimen: Total Risk Factor Score Risk Level Prophylaxis Regimen 0-1 Low Early ambulation 2 Moderate Order ONE of the following: *Sequential Compression Device (SCD) *Heparin 5000 units SQ BID 3-4 Higher Order ONE of the following medications: *Heparin 5000 units SQ TID *Enoxaparin/Lovenox 40 mg SQ daily (WT < 150 kg, CrCl > 30 mL/min) *Enoxaparin/Lovenox 30 mg SQ daily (WT < 150 kg, CrCl > 10-29 mL/min) *Enoxaparin/Lovenox 30 mg SQ BID (WT < 150 kg, CrCl > 30 mL/min) AND/OR *Sequential Compression Device (SCD) 5 or more Highest Order ONE of the following medications: *Heparin 5000 units SQ TID (Preferred with Epidurals) *Enoxaparin/Lovenox 40 mg SQ daily (WT < 150 kg, CrCl > 30 mL/min) *Enoxaparin/Lovenox 30 mg SQ daily (WT < 150 kg, CrCl > 10-29 mL/min) *Enoxaparin/Lovenox 30 mg SQ BID (WT < 150 kg, CrCl > 30 mL/min) AND *Sequential Compression Device (SCD) Assessment and Plan - Assessment (1) Hyponatremia Code(s): E87.1 - Hypo-osmolality and hyponatremia Status: Acute (2) Hypokalemia Code(s): E87.6 - Hypokalemia Status: Acute (3) Urinary obstruction Code(s): N13.9 - Obstructive and reflux uropathy, unspecified Status: Acute (4) Abdominal pain Code(s): R10.9 - Unspecified abdominal pain Status: Acute - Plan 47-year-old male admitted secondary to abdominal pain with inability to urinate , findings of hyponatremia and hypokalemia with acute kidney injury. Abdominal pain Urinary obstruction Start Flomax Urinary catheter in place Follow renal function Etiology for abdominal pain could be urinary obstruction, acute renal failure, acute cholecystitis, or other Obtain HIDA scan Follow renal function Jha catheter now in place to relieve urinary obstruction and for close I&O monitoring Hyponatremia May be related to fluid retention from urinary obstruction No need for paracentesis at this time Poor candidate for passive IV Hydration Treat urinary obstruction and follow sodium levels Hypokalemia Replace cautiously and monitor levels Repeat labs for monitoring Acute kidney injury Approximately 100% increase in creatinine in the last 24-48 hours As above Jha catheter and Flomax have been started Etiology may be related to prostate Monitor creatinine levels now that urinary obstruction is resolved with catheter Chronic liver disease Recurrent ascites Chronic lower extremity edema Recent paracentesis Based on CT no acute need for paracentesis Continue diuretics Continue paracentesis as needed on an outpatient basis SBP unlikely given no leukocytosis and last paracentesis 2 years ago Continue to monitor abdominal pain Follow CBC Hypertension Continue baseline treatment Follow blood pressures Adjust treatments as needed Hyperglycemia Follow blood sugars Insulin sliding scale Diabetic diet DVT prophylaxis SCDs given bleeding risk
[2017-12-05] MEDS ORDERED: Dextrose 50% in Water 50 ML Vial IV.PUSH PRN (10:47)
[2017-12-05] MEDS: Insulin NovoLOG Aspart Correctional Sugar Inj SQ SCH ×3 (12:37→20:51)
[2017-12-05] MEDS ORDERED: Sincalide Inj 5 MCG Vial IV.PUSH ONE (16:10)
--- NOTE | 2017-12-05 16:50 | NM ---
EXAM DATE: 12/05/2017 4:47 PM EDT AGE/SEX: 47 years / Male INDICATIONS: Chronic liver diease with abdomen pain. CLINICAL DATA: This is the patient's initial encounter. Patient reports that signs and symptoms have been present for 1 day and indicates a pain score of 0/10. MEDICAL/SURGICAL HISTORY: Pancreatitis. Diabetes mellitus type II. Hypertension. Smoker. No ne. COMPARISON: No prior exams available for comparison. DOSE: 4.2 mCi Tc-99m mebrofenin i.v. Medication: 2.16 mcg Cholecystokinin IV No symptomatic response Cholecystokinin was administered by slow infusion over 8 minutes beginning at 60 minutes. minutes. TECHNIQUE: Following the intravenous administration of radiotracer, dynamic sequential images were pe rformed with continuous acquisition. Time-activity curves were generated. FINDINGS: Hepatic Kinetics: There is prompt uptake of radiotracer in the liver. No focal defects are seen. Ther e is normal rate of washout from the hepatic parenchyma. Biliary Clearance: Activity is first seen in the extrahepatic biliary system at 15 minutes. There is normal excretion into the small bowel. Gallbladder: Activity is first seen in the gallbladder at 15 minutes. Post-CCK: After CCK administration, there is emptying of the gallbladder with poor response to CCK. C ommon bile duct kinetics are normal and there is no evidence of biliary obstruction. No symptomatic response after cholecystokinin infusion. Biliary-Enteric Reflux: None observed. CONCLUSION: 1. Negative for cystic duct or common duct obstruction 2. Poor response to CCK, nonspecific Electronically signed by: John Simmons MD 12/05/2017 4:49 PM EDT
[2017-12-05] MEDS: Morphine Inj 4 MG/ML Vial IV.PUSH PRN ×2 (17:25→21:31)
[2017-12-05] MEDS: Furosemide 40 MG Tablet PO SCH (17:25)
[2017-12-05] MEDS: Spironolactone 25 MG Tablet PO SCH (17:25)
[2017-12-05] MEDS: Propranolol 10 MG Tablet PO SCH (20:35)
[2017-12-06] MEDS: Morphine Inj 4 MG/ML Vial IV.PUSH PRN ×2 (02:55→06:43)
[2017-12-06 08:25] LABS: Baso % (Auto) 0.5 % (0.0-2.0); Eos % (Auto) 0.5 % (0.0-4.0); Hematocrit 38.6 % (39.0-51.0); Hemoglobin 13.8 gm/dL (13.0-17.0); Lymph % (Auto) 19.7 % (9.0-44.0); Mean Corpuscular HGB Conc 35.7 % (32.0-36.0); Mean Corpuscular Hemoglobin 34.1 pg (27.0-34.0); Mean Corpuscular Volume 95.4 fL (80.0-100.0); Mean Platelet Volume 8.1 fL (7.0-11.0); Mono # (Auto) 0.4 th/mm3 (0.0-0.9); Mono % (Auto) 8.7 % (0.0-8.0); Neut # (Auto) 3.6 th/mm3 (1.8-7.7); Neut % (Auto) 70.6 % (16.0-70.0); Platelet Count 72 th/mm3 (150-450); Red Blood Count 4.05 mil/mm3 (4.50-5.90); Red Cell Distribution Width 13.7 % (11.6-17.2)
[2017-12-06] MEDS: Insulin NovoLOG Aspart Correctional Sugar Inj SQ SCH ×4 (08:42→22:05)
[2017-12-06] MEDS: Furosemide 40 MG Tablet PO SCH ×3 (08:43→16:59)
[2017-12-06] MEDS: Spironolactone 25 MG Tablet PO SCH ×2 (08:43→16:59)
[2017-12-06] MEDS: Pantoprazole Sodium 20 MG DR Tablet PO SCH (08:44)
[2017-12-06] MEDS: Propranolol 10 MG Tablet PO SCH ×2 (08:45→22:04)
[2017-12-06 08:54] LABS: Platelet Morphology Normal (Normal)
[2017-12-06 09:10] LABS: Alanine Aminotransferase 33 U/L (12-78); Albumin 3.2 g/dL (3.4-5.0); Alkaline Phosphatase 106 U/L (45-117); Anion Gap 14 meq/L (5-15); Aspartate Aminotransferase 46 U/L (15-37); Blood Urea Nitrogen 19 mg/dL (7-18); Calcium 8.1 mg/dL (8.5-10.1); Carbon Dioxide 28.2 meq/L (21.0-32.0); Chloride 89 meq/L (98-107); Glomerular Filtration Rate 61 mL/min (>89); Glucose,Random 249 mg/dL (74-106); Sodium 131 meq/L (136-145); Total Protein 7.7 g/dL (6.4-8.2)
[2017-12-06 09:40] LABS: Potassium 2.5 meq/L (3.5-5.1)
--- NOTE | 2017-12-06 12:53 | P.PN ---
Subjective Interval history: Follow up Urinary retention November,-patient seen and examined; asking Narcotics. BLE weakness Physical Exam Vital signs: Vital Signs 12/05/17 17:00 12/05/17 20:00 12/06/17 00:00 Temperature 98.0 F 97.8 F 97.9 F Pulse Rate 109 H 100 H 86 Respiratory Rate 18 17 17 Blood Pressure 120/72 121/79 100/73 Pulse Oximetry 97 96 96 12/06/17 04:00 12/06/17 08:00 Temperature 97.5 F L 97.8 F Pulse Rate 85 93 H Respiratory Rate 18 Blood Pressure 101/73 105/69 Pulse Oximetry 98 95 Intake & Output 12/05/17 12/06/17 12/06/17 18:59 06:59 18:59 Intake Total 240 / 240 Output Total 450 / 450 1050 / 1050 Balance -210 / -210 -1050 / -1050 Weight 108 kg Intake: Oral 240 / 240 Output: Urine 450 / 450 1050 / 1050 Other: Date of Last Bowel Movement 12/04/17 12/04/17 Weight On Admission 108 kg Narrative: GENERAL: NAD SKIN: Warm and dry. HEAD: Normocephalic. EYES: No scleral icterus. No injection or drainage. NECK: Supple, trachea midline. No JVD or lymphadenopathy. CARDIOVASCULAR: Regular rate and rhythm without murmurs, gallops, or rubs. RESPIRATORY: Breath sounds equal bilaterally. No accessory muscle use. GASTROINTESTINAL: Abdomen soft, non-tender, nondistended. MUSCULOSKELETAL: No cyanosis, or edema. 4/5 BLE BACK: Nontender without obvious deformity. No CVA tenderness. - Urinary Catheter Management Indwelling Urethral Catheter Cath placed during this visit: yes, but has since been removed by the nurse Reason for continuing: Decision to DC catheter Insertion date: 12/05/17 Insertion time: 06:47 Removal date: 12/06/17 Removal time: 09:50 Results - Labs CBC & Chem 7: 12/06/17 07:48 12/06/17 07:48 Laboratory Results - last 24 hr 12/05/17 12/05/17 12/06/17 17:12 20:40 07:25 WBC RBC Hgb Hct MCV MCH MCHC RDW Plt Count MPV Prelim Diff (Auto) Neut % (Auto) Lymph % (Auto) [place] % (Auto) Eos % (Auto) Baso % (Auto) Neut # (Auto) Lymph # (Auto) [place] # (Auto) Eos # (Auto) Baso # (Auto) WBC Differential Diff Scan Differential Comment Platelet Estimate Platelet Morphology Sodium Potassium Chloride Carbon Dioxide Anion Gap BUN Creatinine Estimated GFR POC Glucose 215 H 275 H 301 H Random Glucose Calcium Total Bilirubin AST ALT Alkaline Phosphatase Total Protein Albumin 12/06/17 12/06/17 12/06/17 07:48 07:48 11:34 WBC 5.0 RBC 4.05 L Hgb 13.8 Hct 38.6 L MCV 95.4 MCH 34.1 H MCHC 35.7 RDW 13.7 Plt Count 72 L MPV 8.1 Prelim Diff (Auto) Slide review pending Neut % (Auto) 70.6 H Lymph % (Auto) 19.7 [place] % (Auto) 8.7 H Eos % (Auto) 0.5 Baso % (Auto) 0.5 Neut # (Auto) 3.6 Lymph # (Auto) 1.0 [place] # (Auto) 0.4 Eos # (Auto) 0.0 Baso # (Auto) 0.0 WBC Differential . Diff Scan Auto diff confirmed Differential Comment . Platelet Estimate Low L Platelet Morphology Normal Sodium 131 L Potassium 2.5 L* Chloride 89 L Carbon Dioxide 28.2 Anion Gap 14 BUN 19 H Creatinine 1.27 Estimated GFR 61 L POC Glucose 261 H Random Glucose 249 H Calcium 8.1 L D Total Bilirubin 1.3 H AST 46 H ALT 33 Alkaline Phosphatase 106 Total Protein 7.7 D Albumin 3.2 L Microbiology 12/05/17 06:50 Catheterized Urine Urine Culture - Preliminary No growth in 24 hours - Imaging Impressions Bile Acid Absorption NM 12/05/17 00:00 CONCLUSION: 1. Negative for cystic duct or common duct obstruction 2. Poor response to CCK, nonspecific Assessment and Plan - Assessment (1) Hyponatremia Code(s): E87.1 - Hypo-osmolality and hyponatremia Status: Acute (2) Hypokalemia Code(s): E87.6 - Hypokalemia Status: Acute (3) Urinary obstruction Code(s): N13.9 - Obstructive and reflux uropathy, unspecified Status: Acute (4) Abdominal pain Code(s): R10.9 - Unspecified abdominal pain Status: Acute - Plan 47 years old man Abdominal pain Urinary obstruction On Flomax D/c Jha HIDA scan negative If no improvement Hyponatremia Na improving 2/2 Beer potomania Hypokalemia Will give potassium supplement; Monitor Acute kidney injury Improving Chronic liver disease Recurrent ascites Chronic lower extremity edema Continue diuretics Continue paracentesis as needed on an outpatient basis Hypertension Continue baseline treatment Adjust treatments as needed Hyperglycemia Check Ha1C Insulin sliding scale DVT prophylaxis SCDs given bleeding risk
[2017-12-07 06:40] LABS: Baso % (Auto) 0.5 % (0.0-2.0); Eos % (Auto) 0.3 % (0.0-4.0); Hematocrit 38.7 % (39.0-51.0); Hemoglobin 13.5 gm/dL (13.0-17.0); Lymph % (Auto) 22.2 % (9.0-44.0); Mean Corpuscular HGB Conc 34.9 % (32.0-36.0); Mean Corpuscular Volume 97.5 fL (80.0-100.0); Mean Platelet Volume 8.5 fL (7.0-11.0); Mono # (Auto) 0.4 th/mm3 (0.0-0.9); Mono % (Auto) 8.4 % (0.0-8.0); Neut # (Auto) 3.1 th/mm3 (1.8-7.7); Neut % (Auto) 68.6 % (16.0-70.0); Platelet Count 62 th/mm3 (150-450); Red Blood Count 3.97 mil/mm3 (4.50-5.90); Red Cell Distribution Width 13.6 % (11.6-17.2); White Blood Count 4.5 th/mm3 (4.0-11.0)
[2017-12-07 06:59] LABS: Albumin 3.1 g/dL (3.4-5.0); Anion Gap 11 meq/L (5-15); Aspartate Aminotransferase 63 U/L (15-37); Blood Urea Nitrogen 20 mg/dL (7-18); Calcium 8.3 mg/dL (8.5-10.1); Carbon Dioxide 27.2 meq/L (21.0-32.0); Chloride 92 meq/L (98-107); Glomerular Filtration Rate 55 mL/min (>89); Glucose,Random 263 mg/dL (74-106); Potassium 3.1 meq/L (3.5-5.1); Sodium 130 meq/L (136-145)
[2017-12-07 07:00] LABS: Alanine Aminotransferase 37 U/L (12-78); Cholesterol 138 mg/dL (120-200); Triglycerides 167 mg/dL (42-150)
[2017-12-07 07:03] LABS: Alkaline Phosphatase 114 U/L (45-117); Chol/HDL Ratio 3.19 Ratio; HDL Cholesterol 43.2 mg/dL (40.0-60.0); LDL Cholesterol,Calculated 61 mg/dL (0-99); Total Protein 7.8 g/dL (6.4-8.2)
[2017-12-07 07:43] LABS: Platelet Morphology Normal (Normal)
[2017-12-07] MEDS: Propranolol 10 MG Tablet PO SCH ×2 (08:16→22:02)
[2017-12-07] MEDS: Insulin NovoLOG Aspart Correctional Sugar Inj SQ SCH ×4 (08:16→22:04)
[2017-12-07] MEDS: Pantoprazole Sodium 20 MG DR Tablet PO SCH (08:16)
[2017-12-07] MEDS: Spironolactone 25 MG Tablet PO SCH ×2 (08:22→17:56)
[2017-12-07] MEDS: Furosemide 40 MG Tablet PO SCH ×2 (08:22→17:56)
[2017-12-07 10:40] LABS: Hemoglobin A1c 8.9 % (4.3-6.0)
--- NOTE | 2017-12-07 10:50 | P.PN ---
Subjective Interval history: Follow up Urinary retention November,-patient seen and examined; asking Narcotics. BLE weakness December 07, 2017-patient seen and examined, fell voiding trials. Complaining of bladder spasm and pain and requesting narcotics. Low BP. Physical Exam Vital signs: Vital Signs 12/06/17 12:00 12/06/17 16:00 12/06/17 19:53 Temperature 97.8 F 97.8 F 99.9 F H Pulse Rate 92 H 96 H 112 H Respiratory Rate 18 Blood Pressure 104/73 121/61 100/67 Pulse Oximetry 94 L 95 97 12/06/17 23:07 12/07/17 03:55 12/07/17 08:00 Temperature 98.5 F 97.7 F 98.1 F Pulse Rate 98 H 86 88 Respiratory Rate 16 Blood Pressure 101/71 100/71 99/64 L Pulse Oximetry 96 97 95 Intake & Output 12/06/17 12/07/17 12/07/17 18:59 06:59 18:59 Intake Total 360 / 360 Output Total 900 / 900 Balance -900 / -900 360 / 360 Weight 108 kg Intake: Oral 360 / 360 Output: Urine Amount (Catheter) 900 / 900 Straight 900 / 900 Other: Date of Last Bowel Movement 12/04/17 # Bowel Movements 0 Narrative: GENERAL: NAD SKIN: Warm and dry. HEAD: Normocephalic. EYES: No scleral icterus. No injection or drainage. NECK: Supple, trachea midline. No JVD or lymphadenopathy. CARDIOVASCULAR: Regular rate and rhythm without murmurs, gallops, or rubs. RESPIRATORY: Breath sounds equal bilaterally. No accessory muscle use. GASTROINTESTINAL: Abdomen soft, non-tender, nondistended. MUSCULOSKELETAL: No cyanosis, or edema. 4/5 BLE BACK: Nontender without obvious deformity. No CVA tenderness. - Urinary Catheter Management Indwelling Urethral Catheter Cath placed during this visit: yes, but has since been removed by the nurse Reason for continuing: Decision to DC catheter Insertion date: 12/05/17 Insertion time: 06:47 Removal date: 12/06/17 Removal time: 09:50 Straight Cath placed during this visit: yes, but has since been removed by the nurse Reason for continuing: Not indwelling catheter Insertion date: 12/07/17 Insertion time: 15:00 Removal date: 12/07/17 Removal time: 05:16 Results - Labs CBC & Chem 7: 12/07/17 05:54 12/07/17 05:54 Laboratory Results - last 24 hr 12/06/17 12/06/17 12/06/17 11:34 16:05 21:02 WBC RBC Hgb Hct MCV MCH MCHC RDW Plt Count MPV Prelim Diff (Auto) Neut % (Auto) Lymph % (Auto) [place] % (Auto) Eos % (Auto) Baso % (Auto) Neut # (Auto) Lymph # (Auto) [place] # (Auto) Eos # (Auto) Baso # (Auto) WBC Differential Diff Scan Differential Comment Platelet Estimate Platelet Morphology Sodium Potassium Chloride Carbon Dioxide Anion Gap BUN Creatinine Estimated GFR POC Glucose 261 H 301 H 205 H Random Glucose Calcium Total Bilirubin AST ALT Alkaline Phosphatase Total Protein Albumin Triglycerides Cholesterol LDL Cholesterol, Calc HDL Cholesterol Cholesterol/HDL Ratio 12/07/17 12/07/17 12/07/17 05:54 05:54 07:59 WBC 4.5 RBC 3.97 L Hgb 13.5 Hct 38.7 L MCV 97.5 MCH 34.0 MCHC 34.9 RDW 13.6 Plt Count 62 L MPV 8.5 Prelim Diff (Auto) Slide review pending Neut % (Auto) 68.6 Lymph % (Auto) 22.2 [place] % (Auto) 8.4 H Eos % (Auto) 0.3 Baso % (Auto) 0.5 Neut # (Auto) 3.1 Lymph # (Auto) 1.0 [place] # (Auto) 0.4 Eos # (Auto) 0.0 Baso # (Auto) 0.0 WBC Differential . Diff Scan Auto diff confirmed Differential Comment . Platelet Estimate Low L Platelet Morphology Normal Sodium 130 L Potassium 3.1 L Chloride 92 L Carbon Dioxide 27.2 Anion Gap 11 BUN 20 H Creatinine 1.37 H Estimated GFR 55 L POC Glucose 300 H Random Glucose 263 H Calcium 8.3 L Total Bilirubin 1.2 H AST 63 H ALT 37 Alkaline Phosphatase 114 Total Protein 7.8 Albumin 3.1 L Triglycerides 167 H Cholesterol 138 LDL Cholesterol, Calc 61 HDL Cholesterol 43.2 Cholesterol/HDL Ratio 3.19 Microbiology 12/05/17 06:50 Catheterized Urine Urine Culture - Final No growth in 48 hours Assessment and Plan - Assessment (1) Hyponatremia Code(s): E87.1 - Hypo-osmolality and hyponatremia Status: Acute (2) Hypokalemia Code(s): E87.6 - Hypokalemia Status: Acute (3) Urinary obstruction Code(s): N13.9 - Obstructive and reflux uropathy, unspecified Status: Acute (4) Abdominal pain Code(s): R10.9 - Unspecified abdominal pain Status: Acute - Plan 47 years old man Abdominal pain Urinary obstruction On Flomax Patient fell voiding trial, therefore will consult urology and start belladonna alkaloid Place Jha HIDA scan negative If no improvement Hyponatremia Na improving 2/2 Beer pot[place]ia Hypokalemia Will give potassium supplement 60 mEq; Monitor Acute kidney injury Improving Chronic liver disease Recurrent ascites Chronic lower extremity edema Continue diuretics with holding parameter Continue paracentesis as needed on an outpatient basis Hypertension Continue baseline treatment Adjust treatments as needed Diabetes type 2 with labile blood glucose Ha1C pending Start Levemir 10 units at bedtime and continue insulin sliding scale Consult PT DVT prophylaxis SCDs given bleeding risk
[2017-12-07] MEDS: Belladonna Alkaloid/Opium 60 MG Supp RECTAL SCH (12:26)
[2017-12-07] MEDS: Insulin Detemir Inj 1,000 UNIT/10 ML Vial SQ SCH (22:04)
[2017-12-08] MEDS: Belladonna Alkaloid/Opium 60 MG Supp RECTAL SCH (00:18)
[2017-12-08 07:20] LABS: Alanine Aminotransferase 38 U/L (12-78); Anion Gap 11 meq/L (5-15); Aspartate Aminotransferase 51 U/L (15-37); Blood Urea Nitrogen 15 mg/dL (7-18); Calcium 8.6 mg/dL (8.5-10.1); Carbon Dioxide 26.5 meq/L (21.0-32.0); Chloride 97 meq/L (98-107); Glomerular Filtration Rate 75 mL/min (>89); Glucose,Random 201 mg/dL (74-106); Potassium 3.5 meq/L (3.5-5.1); Sodium 134 meq/L (136-145)
[2017-12-08 07:22] LABS: Alkaline Phosphatase 115 U/L (45-117); Total Protein 7.7 g/dL (6.4-8.2)
[2017-12-08] MEDS: Spironolactone 25 MG Tablet PO SCH ×2 (08:10→18:25)
[2017-12-08] MEDS: Pantoprazole Sodium 20 MG DR Tablet PO SCH (08:10)
[2017-12-08] MEDS: Propranolol 10 MG Tablet PO SCH ×2 (08:10→20:42)
[2017-12-08] MEDS: Insulin NovoLOG Aspart Correctional Sugar Inj SQ SCH ×4 (08:48→21:34)
--- NOTE | 2017-12-08 10:20 | P.PNIM ---
Subjective Interval history: Mr. Moran was afebrile with stable vital signs overnight. Per EMR review, patient had 1050ml urine output overnight. Patient reports continued abdominal pain and requests restarting Morphine. Patient he also reports lower back pain which is not chronic in nature. He reports lower extremity weakness bilaterally. Normal bowel movements. No chest pain, shortness of breath, or other concerns at this time. He denies known FH of prostate cancer. Physical Exam Vital signs: Vital Signs 12/07/17 12:00 12/07/17 16:00 12/07/17 19:25 Temperature 98.0 F 98.4 F 98.4 F Pulse Rate 91 H 87 86 Respiratory Rate 16 16 18 Blood Pressure 103/73 102/68 90/57 L Pulse Oximetry 97 97 97 12/07/17 20:00 12/07/17 20:25 12/07/17 23:59 Temperature 97.9 F Pulse Rate 85 86 Respiratory Rate 20 18 Blood Pressure 100/70 Pulse Oximetry 95 12/08/17 00:02 12/08/17 00:25 12/08/17 03:39 Temperature 97.4 F L Pulse Rate 83 97 H 94 H Respiratory Rate 18 Blood Pressure 120/76 108/76 Pulse Oximetry 96 12/08/17 04:05 Temperature Pulse Rate 83 Respiratory Rate Blood Pressure Pulse Oximetry Intake & Output 12/07/17 12/08/17 12/08/17 18:59 06:59 18:59 Intake Total 600 / 600 480 / 480 Output Total 800 / 800 1050 / 1050 Balance -200 / -200 -570 / -570 Weight 108 kg Intake: Oral 600 / 600 480 / 480 Output: Urine 800 / 800 Urine Amount (Catheter) 1050 / 1050 Indwelling Urethral Catheter 1050 / 1050 Other: Date of Last Bowel Movement 12/04/17 Narrative: GENERAL: NAD SKIN: Warm and dry. EYES: EOM grossly I NECK: No JVD or lymphadenopathy. CARDIOVASCULAR: Regular rate and rhythm without murmurs. Normal perfusion RESPIRATORY: CTAB; normal rate GASTROINTESTINAL: Abdomen soft, non-tender, nondistended. MUSCULOSKELETAL: No LE edema. Motor function in lower extremities- 4/5 BLE BACK: Point tenderness over ~L3; otherwise no pain Neuro: Awake, alert. Grossly normal CN; grossly normal peripheral motor/sensory function - Urinary Catheter Management Indwelling Urethral Catheter Cath placed during this visit: yes, but has since been removed by the nurse Reason for continuing: Chronic Urinary Retention Insertion date: 12/07/17 Insertion time: 14:08 Removal date: 12/06/17 Removal time: 09:50 Straight Cath placed during this visit: yes, but has since been removed by the nurse Reason for continuing: Chronic Urinary Retention Insertion date: 12/07/17 Insertion time: 15:00 Removal date: 12/07/17 Removal time: 05:16 Results - Labs CBC & Chem 7: 12/07/17 05:54 12/08/17 04:57 Laboratory Results - last 24 hr 12/07/17 12/07/17 12/07/17 05:54 11:12 17:17 Sodium Potassium Chloride Carbon Dioxide Anion Gap BUN Creatinine Estimated GFR POC Glucose 427 H 282 H Random Glucose Hemoglobin A1c 8.9 H Calcium Total Bilirubin AST ALT Alkaline Phosphatase Total Protein Albumin 12/07/17 12/08/17 12/08/17 20:38 04:57 08:00 Sodium 134 L Potassium 3.5 Chloride 97 L Carbon Dioxide 26.5 Anion Gap 11 BUN 15 Creatinine 1.05 Estimated GFR 75 L POC Glucose 205 H 222 H Random Glucose 201 H Hemoglobin A1c Calcium 8.6 Total Bilirubin 1.0 AST 51 H ALT 38 Alkaline Phosphatase 115 Total Protein 7.7 Albumin 3.0 L Microbiology 12/05/17 06:50 Catheterized Urine Urine Culture - Final No growth in 48 hours Assessment and Plan - Assessment (1) Hyponatremia Code(s): E87.1 - Hypo-osmolality and hyponatremia Status: Acute (2) Hypokalemia Code(s): E87.6 - Hypokalemia Status: Acute (3) Urinary obstruction Code(s): N13.9 - Obstructive and reflux uropathy, unspecified Status: Acute (4) Abdominal pain Code(s): R10.9 - Unspecified abdominal pain Status: Acute - Plan Mr. Moran is a 47 year old man with with: Renal Urinary obstruction [place]- > resolved (12/08) Impression: Patient with abdominal pain in association with inability to urinate. Urinary catheter was placed; patient failed voiding trial so this was replaced CT A/P- Prostate normal in size. fatty replacement to liver. Gallstones in benign appearing gallbladder. Unclear reason for pain Cr ~1.5 on admission; back to baseline currently (12/08) UA- glucosuria; occasional bacteria. Urine culture normal -Continue Jha -Urology consulted -Flomax started -Will check lumbar XR due to pain on exam and associated LE weakness -Will check renal US -Pain control with [place] and Morphine PRN's Acute kidney injury Impression: -Will monitor Cr GI Chronic liver disease Impression: In association with recent abdominal pain and recurrent ascites CT A/P with fatty infiltration of liver HIDA w/o ductal obstruction, poor response to CCK -Continue diuretics -Paracentesis as needed as outpatient Hypertension Continue baseline treatment Adjust treatments as needed Diabetes type 2 with labile blood glucose Impression: A1C 8.9 -Continue Levemir 10 units at bedtime and continue insulin sliding scale Consult PT Electrolyte abnormalities Impression: Mild hyponatremia and normal K after repletion -Monitor and replace as needed DVT prophylaxis SCDs given bleeding risk Code Status: Full code
[2017-12-08] MEDS: Furosemide 40 MG Tablet PO SCH ×2 (11:15→18:25)
--- NOTE | 2017-12-08 14:20 | XR ---
EXAM DATE: 12/08/2017 2:13 PM EDT AGE/SEX: 47 years / Male INDICATIONS: Lower back pain, fall a couple weeks ago. CLINICAL DATA: This is the patient's initial encounter. Patient reports that signs and symptoms have been present for 2 weeks and indicates a pain score of 8/10. MEDICAL/SURGICAL HISTORY: . Pancreatitis. Diabetes mellitus type II. Hypertension None. COMPARISON: No prior exams available for comparison. FINDINGS: The vertebral bodies are in normal alignment without evidence of compression deformity. Bone density is normal for age. Soft tissues are grossly intact. CONCLUSION: Negative for acute process Electronically signed by: John Simmons MD 12/08/2017 2:18 PM EDT
--- NOTE | 2017-12-08 15:19 | US ---
EXAM DATE: 12/08/2017 3:14 PM EDT AGE/SEX: 47 years / Male INDICATIONS: Abdominal pain. Hyponatremia. Hypokalemia. CLINICAL DATA: This is the patient's initial encounter. Patient reports that signs and symptoms have been present for 3 days and indicates a pain score of 3/10. MEDICAL/SURGICAL HISTORY: Diabetes. Hypertension. Ascites. Chronic liver disease. Hyperlipidem ia. Panic attacks. . Paracentesis. [place] [facility] [place]. . MEASUREMENTS: Right Kidney:__11.2 x 5.3 x 4.7 cm Left Kidney:__12.0 x 4.8 x 6.9 cm FINDINGS: Right Kidney: Normal echotexture and cortical thickness. No mass or hydronephrosis. Left Kidney: Normal echotexture and cortical thickness. No mass or hydronephrosis. Bladder: Jha catheter is present. Bladder decompressed. Other: The liver appears enlarged and demonstrates a heterogeneous echotexture. CONCLUSION: 1. Normal sonographic appearance of the kidneys. 2. No evidence of obstructive uropathy. 3. Hepatomegaly with abnormal echotexture characteristic of diffuse hepatocellular disease. Electronically signed by: Markus Quiroz MD 12/08/2017 3:17 PM EDT
[2017-12-08] MEDS: Morphine Sulfate Inj 2 MG/ML Vial IV.PUSH PRN ×2 (16:34→20:43)
[2017-12-08] MEDS: Insulin Detemir Inj 1,000 UNIT/10 ML Vial SQ SCH (21:35)
[2017-12-09] MEDS: Morphine Sulfate Inj 2 MG/ML Vial IV.PUSH PRN ×6 (01:03→21:17)
[2017-12-09] MEDS: Pantoprazole Sodium 20 MG DR Tablet PO SCH (08:36)
[2017-12-09] MEDS: Propranolol 10 MG Tablet PO SCH ×2 (08:36→21:16)
[2017-12-09] MEDS: Insulin NovoLOG Aspart Correctional Sugar Inj SQ SCH ×4 (08:51→21:34)
[2017-12-09 09:58] LABS: Baso % (Auto) 0.3 % (0.0-2.0); Eos % (Auto) 0.5 % (0.0-4.0); Hemoglobin 13.7 gm/dL (13.0-17.0); Lymph # (Auto) 1.3 th/mm3 (1.0-4.8); Lymph % (Auto) 25.8 % (9.0-44.0); Mean Corpuscular HGB Conc 35.1 % (32.0-36.0); Mean Corpuscular Hemoglobin 34.2 pg (27.0-34.0); Mean Corpuscular Volume 97.4 fL (80.0-100.0); Mean Platelet Volume 8.4 fL (7.0-11.0); Mono # (Auto) 0.5 th/mm3 (0.0-0.9); Mono % (Auto) 9.2 % (0.0-8.0); Neut # (Auto) 3.2 th/mm3 (1.8-7.7); Neut % (Auto) 64.2 % (16.0-70.0); Platelet Count 91 th/mm3 (150-450); Red Cell Distribution Width 13.5 % (11.6-17.2); White Blood Count 4.9 th/mm3 (4.0-11.0)
[2017-12-09 10:27] LABS: Calcium 8.6 mg/dL (8.5-10.1); Carbon Dioxide 25.1 meq/L (21.0-32.0); Potassium 3.9 meq/L (3.5-5.1)
--- NOTE | 2017-12-09 10:59 | P.PN ---
Subjective Interval history: In bed appears in nad Denies having any pain. No fever or chills. Denies any chest pain. No nausea or vomiting no diarrhea or constipation. Physical Exam Vital signs: Vital Signs 12/08/17 12:00 12/08/17 16:00 12/08/17 19:51 Temperature 97.3 F L 97.2 F L 98.6 F Pulse Rate 93 H 98 H 98 H Respiratory Rate 18 18 18 Blood Pressure 111/69 117/57 L 109/68 Pulse Oximetry 95 95 97 12/08/17 23:44 12/09/17 02:30 12/09/17 04:30 Temperature 98.7 F 97.4 F L Pulse Rate 110 H 84 Respiratory Rate 18 17 18 Blood Pressure 119/67 117/69 Pulse Oximetry 96 97 12/09/17 08:00 Temperature 97.3 F L Pulse Rate 82 Respiratory Rate 16 Blood Pressure 105/74 Pulse Oximetry 98 Intake & Output 12/08/17 12/09/17 12/09/17 18:59 06:59 18:59 Intake Total 480 / 480 720 / 720 Output Total 550 / 550 1400 / 1400 Balance -70 / -70 -680 / -680 Weight 108 kg Intake: Oral 480 / 480 720 / 720 Output: Urine 550 / 550 Urine Amount (Catheter) 1400 / 1400 Indwelling Urethral Catheter 1400 / 1400 Other: Date of Last Bowel Movement 12/08/17 12/08/17 # Bowel Movements 0 Narrative: GENERAL: In NAD. CARDIOVASCULAR: Regular rate and rhythm without murmurs. Normal perfusion. RESPIRATORY: CTAB. No wheezing. GASTROINTESTINAL: Abdomen soft, non-tender, nondistended. MUSCULOSKELETAL: No LE edema. Motor function in lower extremities- 4/5 BLE BACK: Point tenderness over ~L3; otherwise no pain Neuro: Awake, alert. Grossly normal CN; grossly normal peripheral motor/sensory function. - Urinary Catheter Management Indwelling Urethral Catheter Cath placed during this visit: yes, but has since been removed by the nurse Reason for continuing: Chronic Urinary Retention Insertion date: 12/07/17 Insertion time: 14:08 Removal date: 12/06/17 Removal time: 09:50 Straight Cath placed during this visit: yes, but has since been removed by the nurse Reason for continuing: Chronic Urinary Retention Insertion date: 12/07/17 Insertion time: 15:00 Removal date: 12/07/17 Removal time: 05:16 Results - Labs CBC & Chem 7: 12/09/17 08:11 12/09/17 08:11 Laboratory Results - last 24 hr 12/08/17 12/08/17 12/08/17 11:53 16:33 21:26 WBC RBC Hgb Hct MCV MCH MCHC RDW Plt Count MPV Prelim Diff (Auto) Neut % (Auto) Lymph % (Auto) [place] % (Auto) Eos % (Auto) Baso % (Auto) Neut # (Auto) Lymph # (Auto) [place] # (Auto) Eos # (Auto) Baso # (Auto) WBC Differential Diff Scan Differential Comment Sodium Potassium Chloride Carbon Dioxide Anion Gap BUN Creatinine Estimated GFR POC Glucose 288 H 226 H 225 H Random Glucose Calcium 12/09/17 12/09/17 12/09/17 08:11 08:11 08:35 WBC 4.9 RBC 4.00 L Hgb 13.7 Hct 39.0 MCV 97.4 MCH 34.2 H MCHC 35.1 RDW 13.5 Plt Count 91 L D MPV 8.4 Prelim Diff (Auto) Slide review pending Neut % (Auto) 64.2 Lymph % (Auto) 25.8 [place] % (Auto) 9.2 H Eos % (Auto) 0.5 Baso % (Auto) 0.3 Neut # (Auto) 3.2 Lymph # (Auto) 1.3 [place] # (Auto) 0.5 Eos # (Auto) 0.0 Baso # (Auto) 0.0 WBC Differential . Diff Scan Auto diff confirmed Differential Comment . Sodium 134 L Potassium 3.9 Chloride 98 Carbon Dioxide 25.1 Anion Gap 11 BUN 12 Creatinine 0.93 Estimated GFR 87 L POC Glucose 203 H Random Glucose 187 H Calcium 8.6 - Imaging Impressions Abdomen/Bladder Ultrasound 12/08/17 00:00 CONCLUSION: 1. Normal sonographic appearance of the kidneys. 2. No evidence of obstructive uropathy. 3. Hepatomegaly with abnormal echotexture characteristic of diffuse hepatocellular disease. Lumbar Spine X-Ray 12/08/17 00:00 CONCLUSION: Negative for acute process Assessment and Plan - Assessment (1) Hyponatremia Code(s): E87.1 - Hypo-osmolality and hyponatremia Status: Acute (2) Hypokalemia Code(s): E87.6 - Hypokalemia Status: Acute (3) Urinary obstruction Code(s): N13.9 - Obstructive and reflux uropathy, unspecified Status: Acute (4) Abdominal pain Code(s): R10.9 - Unspecified abdominal pain Status: Acute - Plan Mr. Moran is a 47 year old man with: Renal Urinary obstruction [place]- > resolved (12/08) Impression: Patient with abdominal pain in association with inability to urinate. Urinary catheter was placed; patient failed voiding trial so this was replaced CT A/P- Prostate normal in size. fatty replacement to liver. Gallstones in benign appearing gallbladder. Unclear reason for pain Cr ~1.5 on admission; back to baseline currently (12/08) UA- glucosuria; occasional bacteria. Urine culture normal -Continue Jha -Urology consulted -Flomax started -Lumbar XR due to pain on exam and associated LE weakness. Lumbar XR reviewed and no acute findings. -Renal US reviewed normal kidneys -Pain control with [place] and Morphine PRN's Acute kidney injury Impression: -Will monitor Cr GI Chronic liver disease Impression: In association with recent abdominal pain and recurrent ascites CT A/P with fatty infiltration of liver HIDA w/o ductal obstruction, poor response to CCK -Continue diuretics -Paracentesis as needed as outpatient Hypertension Continue baseline treatment Adjust treatments as needed Diabetes type 2 with labile blood glucose Impression: A1C 8.9 -Continue Levemir 10 units at bedtime and continue insulin sliding scale Consult PT Electrolyte abnormalities Impression: Mild hyponatremia and normal K after repletion -Monitor and replace as needed DVT prophylaxis SCDs given bleeding risk Code Status: Full code DC when improves and cleared by urology.
[2017-12-09] MEDS: Spironolactone 25 MG Tablet PO SCH ×2 (13:16→19:30)
[2017-12-09] MEDS: Furosemide 40 MG Tablet PO SCH ×2 (13:16→19:30)
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
[2017-12-09] MEDS: Insulin Detemir Inj 1,000 UNIT/10 ML Vial SQ SCH (21:35)
[2017-12-10] MEDS: Morphine Sulfate Inj 2 MG/ML Vial IV.PUSH PRN ×3 (01:25→09:26)
[2017-12-10 05:20] VITALS: RESP 18
[2017-12-10] MEDS: Insulin NovoLOG Aspart Correctional Sugar Inj SQ SCH ×2 (08:00→12:00)
[2017-12-10] MEDS: Pantoprazole Sodium 20 MG DR Tablet PO SCH (08:19)
[2017-12-10] MEDS: Propranolol 10 MG Tablet PO SCH (08:19)
[2017-12-10] MEDS: Spironolactone 25 MG Tablet PO SCH (08:24)
[2017-12-10] MEDS: Furosemide 40 MG Tablet PO SCH (08:24)
--- NOTE | 2017-12-10 09:36 | P.DCO ---
- Physical Therapy Order: Evaluate and treat - Home Health Nursing Order: Medical education, Signs/symptoms of disease process, Medication education-adverse effect, Nursing assessment with vital signs - Certification I have seen patient Chau Moran on 12/10/17. My clinical findings support the need for the requested home health care services because: Limited mobility due to disease progression, Patient has SOB I certify that my clinical findings support that this patient is homebound because: Post-op weakness
--- NOTE | 2017-12-10 09:36 | P.DS ---
Date of admission: 12/05/17 10:36 Primary care physician: No Primary Care Physician Brief History from admission: Mr. Moran is a 47-year-old male. He has a past history of chronic liver disease. He had a paracentesis but his paracentesis was last performed June 2015. He comes in the hospital reporting 3-4 days of abdominal pain which has been progressive. In the last 30 hours he has not been able to urinate. Laboratory findings are hyponatremia and hypokalemia. Acute kidney injury is present with an approximate 100% increase in creatinine compared to baseline. No hyperemesis reported. No nausea. Abdominal pain is reported as a deep sharp pain which is sometimes exacerbated or relieved by position . CT of the abdomen shows no acute pathology including no evidence of acute ascites. Urinary catheter has been placed in the emergency department. Lack of ability to urinate is not coupled with the lack of urine so urinary obstruction may be present. Acute abdominal pain etiology could be related to urinary obstruction , acute renal failure, cholecystitis, or other abdominal pathology. Again, CT does not show any evidence of acute cholecystitis and shows no acute changes in the abdomen. DS: Diagnosis - Discharge Diagnosis (1) Hyponatremia Status: Acute (2) Hypokalemia Status: Acute (3) Urinary obstruction Status: Acute (4) Abdominal pain Status: Acute DS: Medications - Discharge Medications Prescriptions: hydrocodone-acetaminophen 1 tab PO Q6H PRN #10 tab PRN Reason: acute pain tamsulosin 0.4 mg PO DAILY #60 cap DS: Summary Hospital Course: [facility] Prescription Drug Monitoring Database has been queried and verified prior to prescribing the controlled substance. Acute pain exception. This patient has normal, predicted, physiological, and time limited response to an adverse mechanical stimulus associated with surgery, trauma, or acute illness as described in my notes. There is a lack of alternative treatment options other than to include the prescribed narcotic treatment for this condition. Mr. Moran is a 47 year old man with: Renal Urinary obstruction GERHARD- > resolved (12/08) Back pain Impression: Patient with abdominal pain in association with inability to urinate. Urinary catheter was placed; patient failed voiding trial so this was replaced CT A/P- Prostate normal in size. fatty replacement to liver. Gallstones in benign appearing gallbladder. Unclear reason for pain Cr ~1.5 on admission; back to baseline currently (12/08) UA- glucosuria; occasional bacteria. Urine culture normal -Continue Jha -Urology consulted -Flomax started -Lumbar XR due to pain on exam and associated LE weakness. Lumbar XR reviewed and no acute findings. -Renal US reviewed normal kidneys -Pain control with [place] and Morphine PRN's -Per urology do voiding trials. Patient was able to urinate without any problems. Patient to follow-up as outpatient with the PCP and urology. Acute kidney injury. Resolved Impression: -Will monitor Cr GI Chronic liver disease Impression: In association with recent abdominal pain and recurrent ascites CT A/P with fatty infiltration of liver HIDA w/o ductal obstruction, poor response to CCK -Continue diuretics -Paracentesis as needed as outpatient Hypertension Continue baseline treatment Adjust treatments as needed Diabetes type 2 with labile blood glucose Impression: A1C 8.9 -Continue Levemir 10 units at bedtime and continue insulin sliding scale Consult PT Electrolyte abnormalities Impression: Mild hyponatremia and normal K after repletion -Monitor and replace as needed DVT prophylaxis SCDs given bleeding risk Code Status: Full code Patient improved. He is cleared by neurology for discharge to follow-up with PCP and consultants as outpatient. - Time Spent with Patient Total time spent providing and/or coordinating discharge services: Greater than 30 minutes - Quality: VTE Deep Vein Thrombosis/Pulmonary Embolism Present on Admission: No Exam Vital signs: Vital Signs 12/09/17 13:29 12/09/17 13:32 12/09/17 16:00 Temperature 98.0 F 98.2 F Pulse Rate 91 H 86 92 H Respiratory Rate 16 18 Blood Pressure 104/70 106/65 122/84 Pulse Oximetry 97 97 12/09/17 20:00 12/10/17 00:00 12/10/17 01:30 Temperature 97.6 F 97.6 F Pulse Rate 98 H 83 Respiratory Rate 18 18 16 Blood Pressure 116/72 108/73 Pulse Oximetry 97 98 12/10/17 04:00 Temperature 97.3 F L Pulse Rate 86 Respiratory Rate 18 Blood Pressure 100/70 Pulse Oximetry 98 Intake & Output 12/09/17 12/10/17 12/10/17 18:59 06:59 18:59 Intake Total 380 / 380 200 / 200 Output Total 700 / 700 150 / 150 Balance -320 / -320 50 / 50 Weight 108 kg Intake: Oral 380 / 380 200 / 200 Output: Urine 700 / 700 150 / 150 Other: Date of Last Bowel Movement 12/08/17 # Bowel Movements 1 Narrative: GENERAL: In NAD. CARDIOVASCULAR: Regular rate and rhythm without murmurs. Normal perfusion. RESPIRATORY: CTAB. No wheezing. GASTROINTESTINAL: Abdomen soft, non-tender, nondistended. MUSCULOSKELETAL: No LE edema. Motor function in lower extremities- 4/5 BLE BACK: Point tenderness over ~L3; otherwise no pain Neuro: Awake, alert. Grossly normal CN; grossly normal peripheral motor/sensory function. Results Procedures completed during hospitalization: none Labs on day of discharge: Labs from last 24 hours 12/10/17 12/09/17 12/09/17 08:27 21:26 17:40 WBC RBC Hgb Hct MCV MCH MCHC RDW Plt Count MPV Prelim Diff (Auto) Neut % (Auto) Lymph % (Auto) [place] % (Auto) Eos % (Auto) Baso % (Auto) Neut # (Auto) Lymph # (Auto) [place] # (Auto) Eos # (Auto) Baso # (Auto) WBC Differential Diff Scan Differential Comment Sodium Potassium Chloride Carbon Dioxide Anion Gap BUN Creatinine Estimated GFR POC Glucose 216 H 280 H 153 H Random Glucose Calcium 12/09/17 12/09/17 12/09/17 12:07 08:11 08:11 WBC 4.9 RBC 4.00 L Hgb 13.7 Hct 39.0 MCV 97.4 MCH 34.2 H MCHC 35.1 RDW 13.5 Plt Count 91 L D MPV 8.4 Prelim Diff (Auto) Slide review pending Neut % (Auto) 64.2 Lymph % (Auto) 25.8 [place] % (Auto) 9.2 H Eos % (Auto) 0.5 Baso % (Auto) 0.3 Neut # (Auto) 3.2 Lymph # (Auto) 1.3 [place] # (Auto) 0.5 Eos # (Auto) 0.0 Baso # (Auto) 0.0 WBC Differential . Diff Scan Auto diff confirmed Differential Comment . Sodium 134 L Potassium 3.9 Chloride 98 Carbon Dioxide 25.1 Anion Gap 11 BUN 12 Creatinine 0.93 Estimated GFR 87 L POC Glucose 235 H Random Glucose 187 H Calcium 8.6 - Impressions ITS Impressions Bile Acid Absorption NM 12/05/17 00:00 CONCLUSION: 1. Negative for cystic duct or common duct obstruction 2. Poor response to CCK, nonspecific Abdomen/Pelvis CT 12/05/17 06:17 CONCLUSION: 1. Fatty replacement to the liver 2. Gallstones in a benign-appearing gallbladder 3. Do not see an etiology for right-sided abdominal pain. Abdomen/Bladder Ultrasound 12/08/17 00:00 CONCLUSION: 1. Normal sonographic appearance of the kidneys. 2. No evidence of obstructive uropathy. 3. Hepatomegaly with abnormal echotexture characteristic of diffuse hepatocellular disease. Lumbar Spine X-Ray 12/08/17 00:00 CONCLUSION: Negative for acute process Discharge Plan - Discharge Disposition Patient Disposition: Disch /Home Health Service - Discharge Condition Condition: Stable - Discharge Order Discharge Orders: Discharge Order (Routine); Ordered 12/10/17 Ordered By: Nelli Cox - Discharge Details Anticipated Discharge Date: 12/05/17 - Physicians Team Primary Care Provider: Primary Care Rob,Vibha Attending Provider: Nelli Cox Other Providers: Hussein Garber MD
[2017-12-10 12:32] VITALS: BP 103/61; PULSE 94; TEMP 97.1; O2SAT 98
== END 2017-12-10 16:13 | disposition home or self-care (01) ==
LOC: NEPE 05:43 → NEDA 10:36 → N06 11:34
PROVIDERS: ADMIT Hospitalist; ATTEND Hospitalist